=== PATIENT | female | born 1995 | race Caucasian/White ===

== ENCOUNTER 2016-11-11 12:44 | Outpatient (CLI) | payer OTHER | END 2016-11-11 12:45 | disposition EMS.NT | LOC: EMS 12:44 | PROVIDERS: ATTEND Surgery | DX: Z04.1 Encounter for examination and observation following transport accident (principal); V47.5XXA Car driver injured in collision with fixed or stationary object in traffic accident, initial encounter; Y92.413 State road as the place of occurrence of the external cause ==

== ENCOUNTER 2017-11-02 08:00 | Outpatient (CLI) | payer BC | END 2017-11-02 08:01 | disposition home or self-care (01) | LOC: LAB.R 08:00 | PROVIDERS: ATTEND Nurse Practitioner Obstetrics & Gynecology | DX: N89.8 Other specified noninflammatory disorders of vagina (principal); Z11.3 Encounter for screening for infections with a predominantly sexual mode of transmission | CPT/HCPCS: 87480; 87491; 87510; 87591; 87660 ==

== ENCOUNTER 2017-11-02 18:57 | Outpatient (CLI) | payer BC, OTHER ==
--- NOTE | 2017-11-02 20:09 | Ultrasound Report ---
Reason: [facility] FOR ROUTINE CHECKING OF IUD Procedure Date: 11/02/2017 Accession Number: [id number] / [id number] Procedure: US - Pelvic w/Transvaginal CPT Code: FULL RESULT: EXAM: PELVIC ULTRASOUND EXAM DATE: 11/02/2017 07:54 PM. CLINICAL HISTORY: Mirena IUD. Unable to find IUD string. . COMPARISON: None. TECHNIQUE: Realtime transabdominal pelvic scan performed to identify the uterus and adnexa and as an overview of other pelvic structures, followed by transvaginal scan to provide greater detail of the uterus and adnexa, with static image documentation. FINDINGS: Uterus: 8.5 x 3.5 x 2.9 cm, volume 44.9 cc. Anteverted position. Normal overall size and echotexture. Masses: None. Endometrium: 4 mm. IUD in good position. Cervix: Unremarkable. Right Ovary: 3.0 x 2.2 x 2.1 cm, volume 7.2 cc. Normal echotexture and blood flow. Left Ovary: 2.8 x 2.1 x 1.8 cm, volume 5.5 cc. Normal echotexture and blood flow. Free Fluid: None. Other: None. IMPRESSION: 1. IUD in good position. 2. Otherwise, unremarkable exam. RADIA The call report notification system was initiated by Dr. Nancy Holliday at 20:04 hrs on 11/02/17. The above findings were discussed with Demarcus Jimenez by Dr. Nancy Holliday at 20:08 hrs on 11/02/17.
== END 2017-11-02 18:58 | disposition home or self-care (01) ==
LOC: DI 18:57
PROVIDERS: ATTEND Nurse Practitioner Obstetrics & Gynecology
DX: Z30.431 Encounter for routine checking of intrauterine contraceptive device (principal); N89.8 Other specified noninflammatory disorders of vagina; Z11.3 Encounter for screening for infections with a predominantly sexual mode of transmission
CPT/HCPCS: 76830; 76856; 87480; 87491; 87510; 87591; 87660

== ENCOUNTER 2018-10-01 08:00 | Outpatient (CLI) | payer BC ==
[2018-10-01 22:05] LABS: TRICHOMONAS VAGINALIS DNA NEGATIVE (NEGATIVE)
== END 2018-10-01 23:59 | disposition home or self-care (01) ==
LOC: LAB.R 08:00
PROVIDERS: ATTEND Obstetrics & Gynecology
DX: R10.2 Pelvic and perineal pain (principal)
CPT/HCPCS: 87086; 87491; 87591; 87661

== ENCOUNTER 2018-10-01 19:27 | Outpatient (CLI) | payer BC ==
[2018-10-04 11:17] LABS: HEPATITIS B SURFACE ANTIGEN NON-REACTIVE (NON-REACTIVE); HEPATITIS C ANTIBODY NON-REACTIVE (NON-REACTIVE)
[2018-10-04 14:57] LABS: HIV AG/AB 4TH GEN NON-REACTIVE (NON-REACTIVE)
== END 2018-10-01 19:28 | disposition home or self-care (01) ==
LOC: LAB 19:27
PROVIDERS: ATTEND Obstetrics & Gynecology
DX: R10.2 Pelvic and perineal pain (principal)
CPT/HCPCS: 36415; 81599; 86592; 86803; 87086; 87340; 87389; 87491; 87591; 87661

== ENCOUNTER 2018-10-03 19:04 | Outpatient (CLI) | payer BC ==
--- NOTE | 2018-10-03 21:16 | Ultrasound Report ---
Reason: PELVIC PAIN Procedure Date: 10/03/2018 Accession Number: [id number] / [id number] Procedure: US - Pelvic w/Transvaginal CPT Code: FULL RESULT: EXAM: PELVIC ULTRASOUND EXAM DATE: 10/03/2018 08:15 PM. CLINICAL HISTORY: Pelvic pain. COMPARISON: PELVIC W/TRANSVAGINAL 11/02/2017 7:06 PM. TECHNIQUE: Realtime transabdominal pelvic scan performed to identify the uterus and adnexa and as an overview of other pelvic structures, followed by transvaginal scan to provide greater detail of the uterus and adnexa, with static image documentation. FINDINGS: Uterus: 7.8 x 3.2 x 3.4 cm, volume 44 cc. Anteverted position. Normal overall size and echotexture. Masses: None. Endometrium: 4 mm. Normal. Cervix: Unremarkable. Right Ovary: 2.6 x 2.1 x 1.6 cm, volume 4.5 cc. Normal echotexture and blood flow. Left Ovary: 2.1 x 1.6 x 2.6 cm, volume 4.4 cc. Normal echotexture and blood flow. Free Fluid: None. Other: None. IMPRESSION: Normal pelvic ultrasound. RADIA
== END 2018-10-03 19:05 | disposition home or self-care (01) ==
LOC: DI 19:04
PROVIDERS: ATTEND Obstetrics & Gynecology
DX: R10.2 Pelvic and perineal pain (principal)
CPT/HCPCS: 76830; 76856

== ENCOUNTER 2019-03-01 08:00 | Outpatient (CLI) | payer BC ==
[2019-03-01 19:19] LABS: HCG UR QUAL NEGATIVE
== END 2019-03-01 23:59 | disposition home or self-care (01) ==
LOC: LAB.R 08:00
PROVIDERS: ATTEND Registered Nurse
DX: F32.9 Major depressive disorder, single episode, unspecified (principal); F41.9 Anxiety disorder, unspecified
CPT/HCPCS: 81025

== ENCOUNTER 2019-03-05 19:14 | Outpatient (CLI) | payer BC ==
[2019-03-05 19:57] LABS: HCG,QUALITATIVE BLOOD NEGATIVE
== END 2019-03-05 19:15 | disposition home or self-care (01) ==
LOC: LAB 19:14
PROVIDERS: ATTEND Registered Nurse
DX: R11.0 Nausea (principal); R42 Dizziness and giddiness; R10.2 Pelvic and perineal pain
CPT/HCPCS: 36415; 84703; 87086

== ENCOUNTER 2019-10-31 08:14 | Emergency (ER) | payer BC ==
--- NOTE | 2019-10-31 08:41 | ED Physician Documentation ---
History of Present Illness - Stated complaint Stated Complaint: FEMALE - Chief complaint Chief Complaint: Abd Pain - History obtained from History obtained from: Patient, Family - History of Present Illness Timing: Today Pain level max: 3 Pain level now: 2 Quality: cramping - Additonal information Additional information: 24-year-old female presents to the emergency department stating that she believes she may be having a miscarriage. She had been on oral contraceptive pills regularly until approximately 4 weeks ago. She states her LMP was approximately 6 weeks ago. She states she started having vaginal bleeding today. She states that it is heavy with clots. Heavier than her normal menses. Nothing makes it better or worse. Has not taken a test. Has never been before. Review of Systems Ten Systems: 10 systems reviewed and negative Constitutional: denies: Fever, Chills Ears: denies: Ear pain Nose: denies: Rhinorrhea / runny nose, Congestion Throat: denies: Sore throat Cardiac: denies: Chest pain / pressure Respiratory: denies: Dyspnea, Cough GI: denies: Nausea, Vomiting, Diarrhea, Hematemesis, Bloody / black stool : denies: Dysuria, Frequency, Hesitancy Skin: denies: Rash Musculoskeletal: denies: Neck pain, Back pain Neurologic: denies: Headache Psychiatric: reports: Anxiety PD PAST MEDICAL HISTORY - Past Medical History Past Medical History: Yes Psych: Anxiety Other Past Medical History: tachycardia, occasionally takes propanolol - Past Surgical History Past Surgical History: Yes HEENT: Tonsil/Adenoidectomy - Allergies Allergies/Adverse Reactions: Allergies Allergy/AdvReac Type Severity Reaction Status Date / Time No Known Drug Allergies Allergy Verified 10/31/19 08:29 - Social History Does the pt smoke?: Yes Smoking Status: Current every day smoker Does the pt drink ETOH?: Yes Does the pt have substance abuse?: Yes - Family History Family history: reports: Non contributory - Immunizations Immunizations are current?: Yes PD ED PE NORMAL - Vitals Vital signs reviewed: Yes - General General: Alert and oriented X 3, No acute distress, Other (Tearful, anxious) - HEENT HEENT: Moist mucous membranes - Neck Neck: Supple, no meningeal sign - Cardiac Cardiac: Other (tachycardic) - Respiratory Respiratory: No respiratory distress, Clear bilaterally - Abdomen Abdomen: Soft, Non tender, Non distended - Back Back: No CVA TTP - Derm Derm: Warm and dry - Extremities Extremities: No edema, No calf tenderness / cord - Neuro Neuro: Alert and oriented X 3 - Psych Psych: Other (anxious) Results - Vitals Vitals: Vital Signs - 24 hr 10/31/19 10/31/19 08:16 09:02 Temperature 37 C Heart Rate 141 H 94 Respiratory 26 H 18 Rate Blood Pressure 177/102 H 142/97 H O2 Saturation 99 99 Oxygen O2 Source Room air - Labs Labs: Laboratory Tests 10/31/19 10/31/19 10/31/19 08:40 08:40 08:40 WBC 11.4 H RBC 4.46 Hgb 13.0 Hct 39.1 MCV 87.7 MCH 29.1 MCHC 33.2 RDW 12.7 Plt Count 411 MPV 9.6 Neut # (Auto) 6.4 Lymph # (Auto) 4.1 H [place] # (Auto) 0.7 Eos # (Auto) 0.2 Baso # (Auto) 0.1 Absolute Nucleated RBC 0.00 Nucleated RBC % 0.0 Sodium 137 Potassium 3.8 Chloride 101 Carbon Dioxide 21 Anion Gap 15.0 H BUN 15 Creatinine 0.8 Estimated GFR (MDRD) 87 L Glucose 186 H Calcium 9.5 Total Bilirubin 0.4 AST 17 ALT 22 Alkaline Phosphatase 70 Total Protein 7.6 Albumin 4.2 Globulin 3.4 Albumin/Globulin Ratio 1.2 Lipase 25 HCG, Quant < 0.60 Urine Color Urine Clarity Urine pH Ur Specific [place] Urine Protein Urine Glucose (UA) Urine Ketones Urine Occult Blood Urine Nitrite Urine Bilirubin Urine Urobilinogen Ur Leukocyte Esterase Urine RBC Urine WBC Ur Squamous Epith Cells Urine Bacteria Ur Microscopic Review Urine Culture Comments 10/31/19 08:50 WBC RBC Hgb Hct MCV MCH MCHC RDW Plt Count MPV Neut # (Auto) Lymph # (Auto) [place] # (Auto) Eos # (Auto) Baso # (Auto) Absolute Nucleated RBC Nucleated RBC % Sodium Potassium Chloride Carbon Dioxide Anion Gap BUN Creatinine Estimated GFR (MDRD) Glucose Calcium Total Bilirubin AST ALT Alkaline Phosphatase Total Protein Albumin Globulin Albumin/Globulin Ratio Lipase HCG, Quant Urine Color YELLOW Urine Clarity CLEAR Urine pH 5.5 Ur Specific [place] 1.025 Urine Protein NEGATIVE Urine Glucose (UA) NEGATIVE Urine Ketones NEGATIVE Urine Occult Blood MODERATE H Urine Nitrite NEGATIVE Urine Bilirubin NEGATIVE Urine Urobilinogen 0.2 (NORMAL) Ur Leukocyte Esterase NEGATIVE Urine RBC None Seen Urine WBC 0-3 Ur Squamous Epith Cells RARE Squamous Urine Bacteria Rare Ur Microscopic Review INDICATED Urine Culture Comments NOT INDICATED PD MEDICAL DECISION MAKING - ED course Complexity details: reviewed results, re-evaluated patient, considered differential, d/w patient ED course: No acute findings on laboratory testing. Patient states that her bleeding resolved in the emergency department. Likely dysfunctional uterine bleeding secondary to oral contraceptive withdrawal. Negative hCG. No evidence of ectopic. We will have her follow-up with her doctor as needed for further care. Patient counseled regarding signs and symptoms for which I believe and urgent re-evaluation would be necessary. Patient with good understanding of and agreement to plan and is comfortable going home at this time This document was made in part using voice recognition software. While efforts are made to proofread this document, sound alike and grammatical errors may occur. Departure - Departure Disposition: 01 Home, Self Care Clinical Impression: Abnormal menses Condition: Good Instructions: ED Bleeding Menstrual Heavy Follow-Up: Jessie Lund ARNP [Primary Care Provider] - As Needed Comments: Return if you worsen. This could be due to withdrawal from your oral contracep tive pills. Your menses may be irregular for the next several months. Follow- up with your doctor as needed for further care. Your test is negative today. Discharge Date/Time: 10/31/19 09:24
[2019-10-31 08:46] LABS: BASOPHILS # (AUTO) 0.1 10^3/uL (0.0-0.1); BASOPHILS % (AUTO) 0.4 %; EOSINOPHILS # (AUTO) 0.2 10^3/uL (0.0-0.7); EOSINOPHILS % (AUTO) 1.5 %; LYMPHOCYTES # (AUTO) 4.1 10^3/uL (1.5-3.5); LYMPHOCYTES % (AUTO) 35.6 %; MEAN CORPUSCULAR HEMOGLOBIN 29.1 pg (27.0-31.0); MEAN CORPUSCULAR HGB CONC 33.2 g/dL (32.0-36.0); MEAN CORPUSCULAR VOLUME 87.7 fL (81.0-99.0); MEAN PLATELET VOLUME 9.6 fL (7.9-10.8); MONOCYTES # (AUTO) 0.7 10^3/uL (0.0-1.0); NEUTROPHILS # (AUTO) 6.4 10^3/uL (1.5-6.6); NEUTROPHILS % (AUTO) 55.6 %; PLT - PLATELET COUNT 411 10^3/uL (130-450); RED BLOOD COUNT 4.46 10^6/uL (4.20-5.40); RED CELL DISTRIBUTION WIDTH 12.7 % (12.0-15.0); WHITE BLOOD COUNT 11.4 x10^3/uL (4.8-10.8)
[2019-10-31 08:59] LABS: ALBUMIN 4.2 g/dL (3.2-5.5); ALBUMIN/GLOBULIN RATIO 1.2 (1.0-2.2); BILIRUBIN,TOTAL 0.4 mg/dL (0.2-1.0); CALCIUM 9.5 mg/dL (8.5-10.3); CREATININE 0.8 mg/dL (0.4-1.0); TOTAL PROTEIN 7.6 g/dL (6.7-8.2)
[2019-10-31 09:02] VITALS: BP 142/97
[2019-10-31 09:06] LABS: BILIRUBIN,URINE NEGATIVE (NEGATIVE); GLUCOSE, URINE (UA) NEGATIVE (NEGATIVE); KETONES,URINE (UA) NEGATIVE (NEGATIVE); LEUKOCYTE ESTERASE, URINE NEGATIVE (NEGATIVE); NITRITE,URINE NEGATIVE (NEGATIVE); OCCULT BLOOD,URINE MODERATE (NEGATIVE); PH,URINE 5.5 PH (5.0-7.5); PROTEIN,URINE NEGATIVE (NEGATIVE); UROBILINOGEN,URINE 0.2 (NORMAL) E.U./dL (NORMAL)
[2019-10-31 09:08] LABS: CLARITY,URINE CLEAR (CLEAR)
[2019-10-31 09:11] LABS: BACTERIA,URINE Rare /HPF (None Seen); RBC,URINE None Seen /HPF (0-5); SQUAMOUS EPITHELIAL CELL,UR RARE Squamous (<= Few)
== END 2019-10-31 09:24 | disposition home or self-care (01) ==
LOC: ED 08:14
DX: N92.6 Irregular menstruation, unspecified (principal); Z32.02 Encounter for pregnancy test, result negative; F17.200 Nicotine dependence, unspecified, uncomplicated
CPT/HCPCS: 36415; 80053; 81001; 81003; 83690; 84702; 85025; 87086; 99283; 99284

== ENCOUNTER 2019-12-25 10:13 | Outpatient (CLI) | payer BC ==
--- NOTE | 2019-12-25 17:51 | XRAY Report ---
PROCEDURE: Knee 2 View RT INDICATIONS: R KNEE PAIN TECHNIQUE: 2 views of the right knee(s) were acquired. COMPARISON: None. FINDINGS: Bones: No fractures or dislocations. No suspicious bony lesions. No definite joint space narrowing Soft tissues: Small joint effusion. No suspicious soft tissue calcifications. IMPRESSION: Small joint effusion. If the patient's pain or other symptoms persist, consider further evaluation with MRI. Reviewed by: Meng Cowart MD on 12/25/2019 5:49 PM PST Approved by: Meng Cowart MD on 12/25/2019 5:49 PM PST Station ID: [id number]
== END 2019-12-25 23:59 | disposition home or self-care (01) ==
LOC: DI.N 10:13
PROVIDERS: ATTEND Family Medicine
DX: M25.461 Effusion, right knee (principal)

== ENCOUNTER 2020-02-24 13:50 | Outpatient (CLI) | payer BC ==
[2020-02-24 14:15] LABS: BASOPHILS # (AUTO) 0.1 10^3/uL (0.0-0.1); BASOPHILS % (AUTO) 0.5 %; EOSINOPHILS # (AUTO) 0.2 10^3/uL (0.0-0.7); EOSINOPHILS % (AUTO) 1.6 %; HGB - HEMOGLOBIN 13.4 g/dL (12.0-16.0); LYMPHOCYTES # (AUTO) 4.7 10^3/uL (1.5-3.5); LYMPHOCYTES % (AUTO) 36.6 %; MEAN CORPUSCULAR HEMOGLOBIN 27.7 pg (27.0-31.0); MEAN CORPUSCULAR HGB CONC 32.1 g/dL (32.0-36.0); MEAN CORPUSCULAR VOLUME 86.2 fL (81.0-99.0); MEAN PLATELET VOLUME 9.6 fL (7.9-10.8); MONOCYTES # (AUTO) 0.6 10^3/uL (0.0-1.0); NEUTROPHILS # (AUTO) 7.1 10^3/uL (1.5-6.6); NEUTROPHILS % (AUTO) 55.8 %; PLT - PLATELET COUNT 408 10^3/uL (130-450); RED BLOOD COUNT 4.84 10^6/uL (4.20-5.40); RED CELL DISTRIBUTION WIDTH 12.5 % (12.0-15.0); WHITE BLOOD COUNT 12.8 x10^3/uL (4.8-10.8)
[2020-02-24 21:31] LABS: HCG,QUALITATIVE BLOOD NEGATIVE
== END 2020-02-24 13:51 | disposition home or self-care (01) ==
LOC: LAB 13:50
PROVIDERS: ATTEND Obstetrics & Gynecology
DX: N93.9 Abnormal uterine and vaginal bleeding, unspecified (principal)
CPT/HCPCS: 36415; 84702; 84703; 85025; 86850; 86900; 86901

== ENCOUNTER 2020-04-21 21:26 | Outpatient (CLI) | payer BC ==
--- NOTE | 2020-04-22 09:19 | Ultrasound Report ---
PROCEDURE: Pelvic w/Transvaginal INDICATIONS: PELVIC PAIN TECHNIQUE: Real-time scanning was performed of the pelvic organs, with image documentation. Additional endovagi nal scanning was necessary due to incomplete visualization of the adnexal and endometrial structures by transabdominal scanning. COMPARISON: Pelvic ultrasound 10/03/2018 FINDINGS: No pathologic free abdominal or pelvic fluid. Uterus: Uterus is normal in size at 8.2 x 3.1 x 4.1 cm. Volume of the uterus 55.8 cc. The endometri um measures 3 mm in combined thickness. Ovaries: Right ovary measures 3.4 x 2.0 x 2.1 cm, volume 7.5 cc. Left ovary measures 3.5 x 1.9 x 2.4 cm, volume 8.1 cc. There are unremarkable. Vascular flow is identified. IMPRESSION: Unremarkable exam. Reviewed by: Keri Van MD on 04/22/2020 9:18 AM PST Approved by: Keri Van MD on 04/22/2020 9:18 AM PST Station ID: [id number]
== END 2020-04-21 21:27 | disposition home or self-care (01) ==
LOC: DI 21:26
PROVIDERS: ATTEND Obstetrics & Gynecology
DX: R10.2 Pelvic and perineal pain (principal)

== ENCOUNTER 2020-05-21 17:41 | Emergency (ER) | payer BC ==
[2020-05-21 18:22] LABS: BASOPHILS # (AUTO) 0.1 10^3/uL (0.0-0.1); BASOPHILS % (AUTO) 0.4 %; EOSINOPHILS # (AUTO) 0.2 10^3/uL (0.0-0.7); EOSINOPHILS % (AUTO) 1.9 %; HCT - HEMATOCRIT 39.6 % (37.0-47.0); HGB - HEMOGLOBIN 12.9 g/dL (12.0-16.0); LYMPHOCYTES # (AUTO) 4.3 10^3/uL (1.5-3.5); LYMPHOCYTES % (AUTO) 37.5 %; MEAN CORPUSCULAR HEMOGLOBIN 27.5 pg (27.0-31.0); MEAN CORPUSCULAR HGB CONC 32.6 g/dL (32.0-36.0); MEAN CORPUSCULAR VOLUME 84.4 fL (81.0-99.0); MEAN PLATELET VOLUME 9.5 fL (7.9-10.8); MONOCYTES # (AUTO) 0.4 10^3/uL (0.0-1.0); MONOCYTES % (AUTO) 3.5 %; NEUTROPHILS # (AUTO) 6.5 10^3/uL (1.5-6.6); NEUTROPHILS % (AUTO) 56.1 %; PLT - PLATELET COUNT 391 10^3/uL (130-450); RED BLOOD COUNT 4.69 10^6/uL (4.20-5.40); RED CELL DISTRIBUTION WIDTH 13.6 % (12.0-15.0); WHITE BLOOD COUNT 11.6 x10^3/uL (4.8-10.8)
[2020-05-21 18:33] LABS: ALBUMIN 4.2 g/dL (3.2-5.5); ALBUMIN/GLOBULIN RATIO 1.1 (1.0-2.2); BILIRUBIN,TOTAL 0.3 mg/dL (0.2-1.0); CALCIUM 9.4 mg/dL (8.5-10.3); CREATININE 0.8 mg/dL (0.4-1.0); POTASSIUM 3.6 mmol/L (3.5-5.0); TOTAL PROTEIN 7.9 g/dL (6.7-8.2)
[2020-05-21 18:40] LABS: BILIRUBIN,URINE NEGATIVE (NEGATIVE); GLUCOSE, URINE (UA) 100 mg/dL (NEGATIVE); KETONES,URINE (UA) NEGATIVE (NEGATIVE); LEUKOCYTE ESTERASE, URINE NEGATIVE (NEGATIVE); NITRITE,URINE NEGATIVE (NEGATIVE); OCCULT BLOOD,URINE SMALL (NEGATIVE); PROTEIN,URINE NEGATIVE (NEGATIVE); UROBILINOGEN,URINE 0.2 (NORMAL) E.U./dL (NORMAL)
[2020-05-21 18:43] LABS: CLARITY,URINE CLEAR (CLEAR); HCG UR QUAL NEGATIVE
[2020-05-21] MEDS ORDERED: SODIUM CHLORIDE 0.9% 1,000 ML IV STA (18:50)
[2020-05-21] MEDS ORDERED: ONDANSETRON 4 MG/2 ML VIAL IVP STA (18:50)
--- NOTE | 2020-05-21 18:52 | ED Physician Documentation ---
PD HPI ABD PAIN - Stated complaint Stated Complaint: ABD PX,NUMBNESS RT ARM/HAND - Chief complaint Chief Complaint: Abd Pain - History obtained from History obtained from: Patient - Additional information Additional information: Patient comes emergency department chief complaint of right lower quadrant abdominal pain, nausea, and intermittent dizziness for the last few days. Patient states the pain has steadily been getting worse little by little, and that she has not felt like eating much for the last couple of days. She states she has been trying to drink a little water, though it has been somewhat difficult because of her nausea. The patient denies any measured fevers, though she does states she feels as though her temperature has been fluctuating between feeling hot and cold. She denies any shaking chills. No dysuria. No hematuria. No bowel changes. She has not vomited, but has had a persistent sense of nausea. No respiratory symptoms. No sore throat. She does note that yesterday, while she was cutting vegetables, she suddenly felt dizzy and had a numbness sensation that went down her entire right arm from the shoulder. She states she can feel the knife she was holding for a few minutes. The patient went to lay down and states that after about 10 minutes she felt better. No other complaints at this time. Patient is otherwise healthy as far she knows. She has the Nexplanon implant and is not known to be , though she has had a little spotting lately. Review of Systems Ten Systems: 10 systems reviewed and negative Constitutional: reports: Reviewed and negative Eyes: reports: Reviewed and negative Ears: reports: Reviewed and negative Nose: reports: Reviewed and negative Throat: reports: Reviewed and negative Cardiac: reports: Reviewed and negative Respiratory: reports: Reviewed and negative GI: reports: Abdominal Pain, Nausea. denies: Vomiting : reports: Reviewed and negative. denies: Dysuria Skin: reports: Reviewed and negative Musculoskeletal: reports: Reviewed and negative Neurologic: reports: Reviewed and negative Psychiatric: reports: Reviewed and negative Endocrine: reports: Reviewed and negative Immunocompromised: reports: Reviewed and negative PD PAST MEDICAL HISTORY - Past Medical History Past Medical History: Yes [employer]ER: Other Psych: Anxiety - Past Surgical History Past Surgical History: Yes HEENT: Tonsil/Adenoidectomy - Present Medications Home Medications: Ambulatory Orders Medication Instructions Recorded Confirmed Ondansetron Odt [Zofran] 4 mg TL Q6H PRN #10 tablet 05/21/20 metFORMIN [Glucophage] 500 mg PO DAILY #30 tablet 05/21/20 - Allergies Allergies/Adverse Reactions: Allergies Allergy/AdvReac Type Severity Reaction Status Date / Time No Known Drug Allergies Allergy Verified 05/21/20 17:58 - Social History Does the pt smoke?: Yes Smoking Status: Current every day smoker Does the pt drink ETOH?: Yes Does the pt have substance abuse?: Yes - Immunizations Immunizations are current?: Yes - POLST Patient has POLST: No PD ED PE NORMAL - Vitals Vital signs reviewed: Yes - General General: Alert and oriented X 3, No acute distress, Well developed/nourished - HEENT HEENT: Atraumatic, PERRL, EOMI, Moist mucous membranes - Neck Neck: Supple, no meningeal sign - Cardiac Cardiac: RRR, No murmur - Respiratory Respiratory: No respiratory distress, Clear bilaterally - Abdomen Abdomen: Soft, Non distended, Other (Moderate tenderness right lower quadrant, no rebound or guarding.) - Back Back: Other (Mild left CVA tenderness, no right CVA tenderness.) - Derm Derm: Normal color, Warm and dry, No rash - Extremities Extremities: No deformity, No edema, No calf tenderness / cord - Neuro Neuro: Alert and oriented X 3, didactic program in dietetics director 2-12 intact, Normal speech - Psych Psych: Normal mood, Normal affect Results - Vitals Vitals: Oxygen O2 Source Room air - Labs Labs: Laboratory Tests 05/21/20 05/21/20 05/21/20 18:15 18:15 18:15 WBC 11.6 H RBC 4.69 Hgb 12.9 Hct 39.6 MCV 84.4 MCH 27.5 MCHC 32.6 RDW 13.6 Plt Count 391 MPV 9.5 Neut # (Auto) 6.5 Lymph # (Auto) 4.3 H [place] # (Auto) 0.4 Eos # (Auto) 0.2 Baso # (Auto) 0.1 Absolute Nucleated RBC 0.00 Nucleated RBC % 0.0 Sodium 137 Potassium 3.6 Chloride 106 Carbon Dioxide 20 L Anion Gap 11.0 BUN 12 Creatinine 0.8 Estimated GFR (MDRD) 87 L Glucose 258 H Estimat Average Glucose Hemoglobin A1c % Calcium 9.4 Total Bilirubin 0.3 AST 15 ALT 17 Alkaline Phosphatase 86 Total Protein 7.9 Albumin 4.2 Globulin 3.7 Albumin/Globulin Ratio 1.1 Lipase 29 Urine Color YELLOW Urine Clarity CLEAR Urine pH 7.0 Ur Specific [place] 1.020 Urine Protein NEGATIVE Urine Glucose (UA) 100 H Urine Ketones NEGATIVE Urine Occult Blood SMALL H Urine Nitrite NEGATIVE Urine Bilirubin NEGATIVE Urine Urobilinogen 0.2 (NORMAL) Ur Leukocyte Esterase NEGATIVE Urine RBC 0-5 Urine WBC 0-3 Ur Squamous Epith Cells RARE Squamous Urine Bacteria None Seen Ur Microscopic Review INDICATED Urine Culture Comments NOT INDICATED Urine HCG, Qual NEGATIVE 05/21/20 18:15 WBC RBC Hgb Hct MCV MCH MCHC RDW Plt Count MPV Neut # (Auto) Lymph # (Auto) [place] # (Auto) Eos # (Auto) Baso # (Auto) Absolute Nucleated RBC Nucleated RBC % Sodium Potassium Chloride Carbon Dioxide Anion Gap BUN Creatinine Estimated GFR (MDRD) Glucose Estimat Average Glucose 146 H Hemoglobin A1c % 6.7 H Calcium Total Bilirubin AST ALT Alkaline Phosphatase Total Protein Albumin Globulin Albumin/Globulin Ratio Lipase Urine Color Urine Clarity Urine pH Ur Specific [place] Urine Protein Urine Glucose (UA) Urine Ketones Urine Occult Blood Urine Nitrite Urine Bilirubin Urine Urobilinogen Ur Leukocyte Esterase Urine RBC Urine WBC Ur Squamous Epith Cells Urine Bacteria Ur Microscopic Review Urine Culture Comments Urine HCG, Qual - Rads (name of study) CT abd/pelvis Radiology: Discussed with rads, EMP read indepedently, See rad report (neg) PD MEDICAL DECISION MAKING - ED course Complexity details: reviewed results, re-evaluated patient, considered differential, d/w patient ED course: Patient was worked up with labs, urinalysis, and urine test. She was found to have a slight leukocytosis and a negative test. Given her right lower quadrant tenderness and the nausea she been having, I feel she should be evaluated with CT scan of the abdomen and pelvis. While awaiting this, patient was given a liter of 0.9 normal saline as well as a dose of Zofran. The CT scan was unremarkable. I discussed with the patient that I am not entirely sure what is causing her symptoms. She was found to have a significantly elevated blood glucose at 258, and I am concerned that she has undiagnosed diabetes. This could potentially be the source of some of her symptoms. I have added hemoglobin A1c onto her labs, and I feel the best plan at this point is to start her on a low-dose of Metformin. Unfortunately, due to it being nighttime, I am not able to call any of the local clinics to directly get follow-up set up for this patient, but I have advised her to call primary care office first thing in the morning to set up follow-up. I have prescribed her a glucometer, lancets, and glucose test strips, as well as Metformin. We have discussed home management of the symptoms, as well as usual indications for return. Because she has received IV contrast today, we will have her start the Metformin tomorrow, instead. Departure - Departure Disposition: Home, Self Care Clinical Impression: Diabetes mellitus, new onset Abdominal pain Qualifiers: Abdominal location: right lower quadrant Qualified Code(s): R10.31 - Right lower quadrant pain Condition: Stable Instructions: ED Abdominal Pain Unkn Cause, ED Diabetes General Info, ED Hyperglycemia Diabetic Prescriptions: metFORMIN [Glucophage] 500 mg PO DAILY #30 tablet Ondansetron Odt [Zofran] 4 mg TL Q6H PRN #10 tablet PRN Reason: Nausea / Vomiting Comments: Your CT scan looks good, as to most of your labs, but your blood sugar was significantly elevated to 58. Given that the normal range is up to about 110, this finding is concerning for diabetes. As such, it is very important that you follow-up in primary care for further evaluation of this. Tonight, you have been started on an oral medication for this called Metformin. This is a common oral agent used to treat diabetes. We have started you on the lowest dose and it would be best if you are able to check your blood sugars in the morning and evening. A prescription has been given for the necessary equipment. Please call first thing tomorrow morning to set up an appointment with [facility] for follow-up, preferably within the next week. Discharge Date/Time: 05/21/20 21:00
[2020-05-21 18:55] LABS: BACTERIA,URINE None Seen /HPF (None Seen); RBC,URINE 0-5 /HPF (0-5); SQUAMOUS EPITHELIAL CELL,UR RARE Squamous (<= Few); WBC,URINE 0-3 /HPF (0-5)
[2020-05-21] MEDS ORDERED: IOPAMIDOL-300 100 ML VIAL ONE (19:21)
[2020-05-21] MEDS ORDERED: KETOROLAC 30 MG/ML VIAL IVP STA (19:38)
[2020-05-21] MEDS ORDERED: HYDROmorphone 1 MG/ML CARPUJECT IVP STA (19:38)
[2020-05-21] MEDS ORDERED: IOPAMIDOL-300 100 ML VIAL IVP ONE (19:47)
--- NOTE | 2020-05-21 20:14 | CT Report ---
PROCEDURE: Abdomen/Pelvis W INDICATIONS: RLQ pain, nausea CONTRAST: IV CONTRAST: Isovue 300 ml: 100 PO CONTRAST: *NO PO CONTRAST TECHNIQUE: After the administration of intravenous contrast, 5 mm thick sections acquired from the diaphragms to the symphysis. 5 mm thick coronal and sagittal reformats were acquired. For radiation dose reducti on, the following was used: automated exposure control, adjustment of mA and/or kV according to daisy ent size. COMPARISON: None. FINDINGS: Image quality: Excellent. ABDOMEN: Lung bases: Lung bases are clear. Heart size is normal. Solid organs: Evaluation of the liver demonstrates no focal hepatic lesions. Gallbladder appears wit hin normal limits without calcified gallstones. Biliary system is non dilated. The spleen is normal in size. Pancreas enhances normally without peripancreatic fat stranding or fluid collections. No ad renal nodules. Kidneys demonstrate no hydronephrosis. Peritoneum and bowel: Bowel loops demonstrate normal wall thickness and caliber. The appendix is nor mal in appearance. There is colonic diverticulosis without acute diverticulitis. No free fluid or air . Nodes and vessels: No retroperitoneal or mesenteric adenopathy by size criteria. Aorta and inferior vena cava are normal in size. Miscellaneous: No ventral hernias. PELVIS: Genitourinary: Bladder wall thickness is normal. The ovaries and uterus appear within normal size li mits for age. Miscellaneous: No inguinal hernias or adenopathy. Bones: No suspicious bony lesions. No vertebral body compression fractures. IMPRESSION: 1. No acute intra-abdominal abnormality. Specifically, no evidence of appendicitis. Reviewed by: Mahendra Childress MD on 05/21/2020 8:12 PM PDT Approved by: Mahendra Childress MD on 05/21/2020 8:12 PM PDT Station ID: [id number]
[2020-05-21] MEDS ORDERED: metFORMIN 500 MG TABLET PO STA (20:44)
[2020-05-21 20:52] LABS: ESTIMATED AVERAGE GLUCOSE 146 mg/dL (70-100); HEMOGLOBIN A1c% 6.7 % (4.27-6.07)
[2020-05-21 21:00] VITALS: BP 128/78
== END 2020-05-21 21:00 | disposition home or self-care (01) ==
LOC: ED 17:41
DX: E11.9 Type 2 diabetes mellitus without complications (principal); R10.31 Right lower quadrant pain; F17.200 Nicotine dependence, unspecified, uncomplicated
CPT/HCPCS: 36415; 74177; 80053; 81001; 81025; 83036; 83690; 85025; 96361; 96374; 96375; 99284; A9270; J1170; Q9967; 81003; 87086

== ENCOUNTER 2020-09-17 09:46 | Emergency (ER) | payer BC ==
[2020-09-17] MEDS ORDERED: ONDANSETRON 4 MG/2 ML VIAL IVP STA (09:49)
[2020-09-17] MEDS ORDERED: SODIUM CHLORIDE 0.9% 1,000 ML IV STA (09:49)
[2020-09-17 10:26] LABS: BASOPHILS # (AUTO) 0.1 10^3/uL (0.0-0.1); BASOPHILS % (AUTO) 0.4 %; EOSINOPHILS # (AUTO) 0.1 10^3/uL (0.0-0.7); EOSINOPHILS % (AUTO) 0.9 %; HCT - HEMATOCRIT 41.4 % (37.0-47.0); HGB - HEMOGLOBIN 13.1 g/dL (12.0-16.0); LYMPHOCYTES # (AUTO) 3.8 10^3/uL (1.5-3.5); MEAN CORPUSCULAR HEMOGLOBIN 27.1 pg (27.0-31.0); MEAN CORPUSCULAR HGB CONC 31.6 g/dL (32.0-36.0); MEAN CORPUSCULAR VOLUME 85.7 fL (81.0-99.0); MEAN PLATELET VOLUME 9.8 fL (7.9-10.8); MONOCYTES # (AUTO) 0.4 10^3/uL (0.0-1.0); MONOCYTES % (AUTO) 3.5 %; NEUTROPHILS % (AUTO) 61.8 %; PLT - PLATELET COUNT 380 10^3/uL (130-450); RED BLOOD COUNT 4.83 10^6/uL (4.20-5.40); RED CELL DISTRIBUTION WIDTH 14.2 % (12.0-15.0); WHITE BLOOD COUNT 11.4 x10^3/uL (4.8-10.8)
[2020-09-17 10:30] LABS: BILIRUBIN,URINE NEGATIVE (NEGATIVE); GLUCOSE, URINE (UA) NEGATIVE (NEGATIVE); KETONES,URINE (UA) NEGATIVE (NEGATIVE); LEUKOCYTE ESTERASE, URINE NEGATIVE (NEGATIVE); NITRITE,URINE NEGATIVE (NEGATIVE); OCCULT BLOOD,URINE SMALL (NEGATIVE); PROTEIN,URINE NEGATIVE (NEGATIVE); UROBILINOGEN,URINE 0.2 (NORMAL) E.U./dL (NORMAL)
[2020-09-17 10:34] LABS: CLARITY,URINE CLEAR (CLEAR); HCG UR QUAL NEGATIVE
[2020-09-17 10:40] LABS: ALBUMIN 4.9 g/dL (3.2-5.5); ALBUMIN/GLOBULIN RATIO 1.4 (1.0-2.2); BILIRUBIN,TOTAL 0.6 mg/dL (0.2-1.0); CALCIUM 9.8 mg/dL (8.5-10.3); CREATININE 0.8 mg/dL (0.4-1.0); POTASSIUM 3.9 mmol/L (3.5-5.0); TOTAL PROTEIN 8.4 g/dL (6.7-8.2)
[2020-09-17 10:43] LABS: BACTERIA,URINE Rare /HPF (None Seen); RBC,URINE 0-5 /HPF (0-5); SQUAMOUS EPITHELIAL CELL,UR RARE Squamous (<= Few); WBC,URINE 0-3 /HPF (0-5)
--- NOTE | 2020-09-17 10:58 | ED Physician Documentation ---
PD HPI ABD PAIN - Stated complaint Stated Complaint: ABD PX - Chief complaint Chief Complaint: Abd Pain - History obtained from History obtained from: Patient - Additional information Additional information: Comes emergency department with chief complaint of abdominal pain and intermittent nausea ongoing for the last 4 to 5 weeks. Patient states that she first noticed the problems when she had hamburger after having been on a primarily vegetable-based diet for quite some time. She states that since then, she has had ongoing upper abdominal pain and cramping and that about once a week she will also have vomiting. She states that often this is in conjunction with having eaten something that is not within her usual dietary constraints. Patient has a fairly recent diagnosis of diabetes mellitus and states that her sugars actually have been doing well, mostly staying in the lower 100s. Patient denies fevers or chills. No dysuria or vaginal symptoms. The patient has a Nexplanon and does not really get periods. She denies any prior history of abdominal issues. She does not know of anybody in her family who has had gallbladder disease. No other complaints at this time. She states that her abdominal discomfort comes and goes, and that today, it is across her upper abdomen, plus down her left side. Review of Systems Ten Systems: 10 systems reviewed and negative Constitutional: reports: Reviewed and negative Eyes: reports: Reviewed and negative Ears: reports: Reviewed and negative Nose: reports: Reviewed and negative Throat: reports: Reviewed and negative Cardiac: reports: Reviewed and negative Respiratory: reports: Reviewed and negative GI: reports: Abdominal Pain, Nausea, Vomiting : reports: Reviewed and negative Skin: reports: Reviewed and negative Musculoskeletal: reports: Reviewed and negative Neurologic: reports: Reviewed and negative Psychiatric: reports: Reviewed and negative Endocrine: reports: Reviewed and negative Immunocompromised: reports: Reviewed and negative PD PAST MEDICAL HISTORY - Past Medical History 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 Psych: 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 - Past Surgical History Past Surgical History: Yes HEENT: Tonsil/Adenoidectomy - Present Medications Home Medications: Ambulatory Orders Medication Instructions Recorded Confirmed Ondansetron Odt [Zofran] 4 mg TL Q6H PRN #10 tablet 05/21/20 metFORMIN [Glucophage] 500 mg PO DAILY #30 tablet 05/21/20 Omeprazole [PriLOSEC] 20 mg PO DAILY #30 cap 09/17/20 Ondansetron Odt [Zofran] 4 mg TL Q6H PRN #10 tablet 09/17/20 - Allergies Allergies/Adverse Reactions: Allergies Allergy/AdvReac Type Severity Reaction Status Date / Time No Known Drug Allergies Allergy Verified 09/17/20 10:08 - Social History Does the pt smoke?: Yes Smoking Status: Current every day smoker Does the pt drink ETOH?: Yes Does the pt have substance abuse?: Yes - Immunizations Immunizations are current?: Yes - POLST Patient has POLST: No PD ED PE NORMAL - Vitals Vital signs reviewed: Yes - General General: Alert and oriented X 3, No acute distress - HEENT HEENT: PERRL - Neck Neck: Supple, no meningeal sign - Cardiac Cardiac: RRR, No murmur, Strong equal pulses - Respiratory Respiratory: No respiratory distress, Clear bilaterally - Abdomen Abdomen: Soft, Non distended, Other (Over the suprapubic area andModerate tenderness without rebound or guarding tire left abdomen. Moderate tenderness over right upper quadrant, as well.) - Back Back: Other (Left CVA tenderness) - Derm Derm: Normal color, Warm and dry, No rash - Extremities Extremities: No deformity, No edema, No calf tenderness / cord - Neuro Neuro: Alert and oriented X 3, rollway man 2-12 intact, Normal speech - Psych Psych: Normal mood, Normal affect Results - Vitals Vitals: Vital Signs - 24 hr 09/17/20 09/17/20 09/17/20 10:05 11:59 13:30 Temperature 36.7 C 36.1 C L Heart Rate 95 83 67 Respiratory 16 16 20 Rate Blood Pressure 142/111 H 141/85 H 108/82 H O2 Saturation 99 96 100 Oxygen O2 Source Room air - Labs Labs: Laboratory Tests 09/17/20 09/17/20 09/17/20 10:15 10:15 10:15 WBC 11.4 H RBC 4.83 Hgb 13.1 Hct 41.4 MCV 85.7 MCH 27.1 MCHC 31.6 L RDW 14.2 Plt Count 380 MPV 9.8 Neut # (Auto) 7.0 H Lymph # (Auto) 3.8 H [place] # (Auto) 0.4 Eos # (Auto) 0.1 Baso # (Auto) 0.1 Absolute Nucleated RBC 0.00 Nucleated RBC % 0.0 Sodium 138 Potassium 3.9 Chloride 105 Carbon Dioxide 22 Anion Gap 11.0 BUN 9 Creatinine 0.8 Estimated GFR (MDRD) 87 L Glucose 102 H Calcium 9.8 Total Bilirubin 0.6 AST 15 ALT 17 Alkaline Phosphatase 73 Total Protein 8.4 H Albumin 4.9 Globulin 3.6 Albumin/Globulin Ratio 1.4 Lipase 27 Urine Color YELLOW Urine Clarity CLEAR Urine pH 7.0 Ur Specific Wallace 1.020 Urine Protein NEGATIVE Urine Glucose (UA) NEGATIVE Urine Ketones NEGATIVE Urine Occult Blood SMALL H Urine Nitrite NEGATIVE Urine Bilirubin NEGATIVE Urine Urobilinogen 0.2 (NORMAL) Ur Leukocyte Esterase NEGATIVE Urine RBC 0-5 Urine WBC 0-3 Ur Squamous Epith Cells RARE Squamous Urine Bacteria Rare Ur Microscopic Review INDICATED Urine Culture Comments NOT INDICATED Urine HCG, Qual NEGATIVE - Rads (name of study) CT abd/pelvis Radiology: Final report received, EMP read indepedently, See rad report (neg) PD MEDICAL DECISION MAKING - ED course Complexity details: reviewed results, re-evaluated patient, considered differential, d/w patient, d/w family ED course: The patient was worked up with labs, urinalysis, and CT of the abdomen pelvis. She was treated with IV fluids, dilaudid and Zofran, with some improvement in sx. Work-up was negative, except for slight leukocytosis. I d/w pt and that she would likely benefit from GI consultation at this point, and probably endoscopy. We have discussed symptomatic management at home with a PPI and Zofran. I have prescribed these, as well. We have discussed the usual indications for return. Departure - Departure Disposition: 01 Home, Self Care Clinical Impression: Vomiting Qualifiers: Vomiting type: bilious vomiting Nausea presence: with nausea Qualified Code(s): R11.14 - Bilious vomiting Abdominal pain Qualifiers: Abdominal location: generalized Qualified Code(s): R10.84 - Generalized abdomin al pain Condition: Stable Instructions: ED Abdominal Pain Unkn Cause, ED Nausea Vomiting Follow-Up: ABRAM PENA MD [Physician No Access] - Chase Lyn MD [Physician No Access] - SETH REZA MD [Physician No Access] - Prescriptions: Omeprazole [PriLOSEC] 20 mg PO DAILY #30 cap Ondansetron Odt [Zofran] 4 mg TL Q6H PRN #10 tablet PRN Reason: Nausea / Vomiting Comments: Your labs and CT scan do not show any concerning abnormalities. It is not clear exactly what is causing your symptoms, but probably the next best test to do to try and figure out what is causing your ongoing abdominal pain and vomiting is an endoscopy. We have given you the contact information for gastroenterology at [facility] and [facility], but often, and these clinics want a referral from your primary provider. Please follow-up with your primary, as well to help get the r eferral process going. You may take the nausea medication as needed. Please speak with your primary doctor about the best course of action regarding your abdominal pain, as many pain medications are constipating and may make the situation worse. Discharge Date/Time: 09/17/20 13:32
[2020-09-17] MEDS ORDERED: HYDROmorphone 1 MG/ML CARPUJECT IM STA (11:27)
[2020-09-17] MEDS ORDERED: IOPAMIDOL-300 100 ML VIAL ONE (11:30)
[2020-09-17] MEDS ORDERED: IOPAMIDOL-300 100 ML VIAL IVP ONE (11:59)
--- NOTE | 2020-09-17 12:06 | CT Report ---
PROCEDURE: Abdomen/Pelvis W INDICATIONS: LLQ and RUQ abd pain, nausea CONTRAST: IV CONTRAST: Isovue 300 ml: 100 PO CONTRAST: *NO PO CONTRAST TECHNIQUE: After the administration of intravenous contrast, 5 mm thick sections acquired from the diaphragms to the symphysis. 5 mm thick coronal and sagittal reformats were acquired. For radiation dose reducti on, the following was used: automated exposure control, adjustment of mA and/or kV according to daisy ent size. COMPARISON: 05/21/2020 CT abdomen and pelvis FINDINGS: Image quality: Excellent. ABDOMEN: Lung bases: Lung bases are clear. Heart size is normal. Solid organs: Normal CT appearance of the liver, spleen, pancreas, gallbladder, adrenal glands, and k idneys. Peritoneum and bowel: The appendix is normal in caliber and contains air with no wall thickening or adjacent inflammatory change. Bowel loops demonstrate normal wall thickness and caliber. No free flu id or air. Nodes and vessels: No retroperitoneal or mesenteric adenopathy by size criteria. Aorta and inferior vena cava are normal in size. Miscellaneous: No ventral hernias. PELVIS: Genitourinary: Bladder wall thickness is normal. Miscellaneous: No inguinal hernias or adenopathy. Bones: No suspicious bony lesions. No vertebral body compression fractures. IMPRESSION: No finding to explain symptoms. No acute abnormality. Reviewed by: Roscoe Lima MD on 09/17/2020 12:04 PM PDT Approved by: Roscoe Lima MD on 09/17/2020 12:04 PM PDT Station ID: [id number]
[2020-09-17] MEDS ORDERED: PROMETHAZINE INJ 25 MG in SODIUM CHLORIDE 0.9% 50 ML IV STA (12:22)
[2020-09-17] MEDS ORDERED: HYDROmorphone 1 MG/ML CARPUJECT IVP STA (12:22)
[2020-09-17 13:32] VITALS: BP 108/82
== END 2020-09-17 13:32 | disposition home or self-care (01) ==
LOC: ED 09:46
DX: R10.84 Generalized abdominal pain (principal); R11.14 Bilious vomiting; E11.9 Type 2 diabetes mellitus without complications; Z79.84 Long term (current) use of oral hypoglycemic drugs; F17.200 Nicotine dependence, unspecified, uncomplicated
CPT/HCPCS: 36415; 74177; 80053; 81001; 81025; 83690; 85025; 96365; 96372; 96375; 99284; 99285; J1170; J7040; Q9967; 81003; 87086

== ENCOUNTER 2020-11-24 20:29 | Emergency (ER) | payer BC ==
[2020-11-24 21:07] LABS: BASOPHILS % (AUTO) 0.4 %; EOSINOPHILS % (AUTO) 0.7 %; HCT - HEMATOCRIT 40.1 % (37.0-47.0); HGB - HEMOGLOBIN 12.8 g/dL (12.0-16.0); LYMPHOCYTES % (AUTO) 33.7 %; MEAN CORPUSCULAR HEMOGLOBIN 27.4 pg (27.0-31.0); MEAN CORPUSCULAR HGB CONC 31.9 g/dL (32.0-36.0); MEAN CORPUSCULAR VOLUME 85.7 fL (81.0-99.0); MEAN PLATELET VOLUME 9.7 fL (7.9-10.8); MONOCYTES % (AUTO) 3.6 %; NEUTROPHILS % (AUTO) 61.2 %; PLT - PLATELET COUNT 422 10^3/uL (130-450); RED BLOOD COUNT 4.68 10^6/uL (4.20-5.40); RED CELL DISTRIBUTION WIDTH 13.5 % (12.0-15.0); WHITE BLOOD COUNT 16.8 x10^3/uL (4.8-10.8)
[2020-11-24 21:12] LABS: ABNORMAL LYMPHS % (MANUAL) 0 %
[2020-11-24] MEDS ORDERED: ONDANSETRON 4 MG/2 ML VIAL IVP STA (21:17)
[2020-11-24] MEDS ORDERED: FAMOTIDINE 20 MG/2 ML VIAL IVP STA (21:17)
[2020-11-24] MEDS ORDERED: MORPHINE 2 MG/ML CARPUJECT IVP STA (21:18)
[2020-11-24] MEDS ORDERED: SODIUM CHLORIDE 0.9% 1,000 ML IV STA (21:18)
[2020-11-24 21:20] LABS: ALBUMIN 4.7 g/dL (3.2-5.5); ALBUMIN/GLOBULIN RATIO 1.4 (1.0-2.2); BILIRUBIN,TOTAL 0.6 mg/dL (0.2-1.0); CALCIUM 10.1 mg/dL (8.5-10.3); CREATININE 0.8 mg/dL (0.4-1.0); POTASSIUM 3.4 mmol/L (3.5-5.0)
[2020-11-24 21:23] LABS: INR 1.2 (0.8-1.2)
[2020-11-24 21:29] LABS: BAND NEUTROPHILS % (MANUAL) 1 %; DIFFERENTIAL COMMENT MANUAL DIFFERENTIAL; LYMPHOCYTES # (MANUAL) 6.4 10^3/uL (1.5-3.5); LYMPHOCYTES % (MANUAL) 29 %; MONOCYTES # (MANUAL) 0.2 10^3/uL (0.0-1.0); NEUTROPHILS # (MANUAL) 10.2 10^3/uL (1.5-6.6); PLATELET ESTIMATE, MANUAL NORMAL (130-450,000) (NORMAL); RBC MORPHOLOGY (MULTIPLE) NORMAL APPEARANCE (NORMAL); REACTIVE LYMPHS % (MANUAL) 9 %
--- NOTE | 2020-11-24 21:44 | ED Physician Documentation ---
History of Present Illness - Stated complaint Stated Complaint: ABD PX/VOMIT - Chief complaint Chief Complaint: Abd Pain - History obtained from History obtained from: Patient - Additonal information Additional information: 25yF with PMH prediabetes on metformin, anxiety on SSRI, presents with 6-8 months of intermittent abdominal pain for which she has seen doctors multiple times, most recently here in the ED 2 months ago with negative workup including CT. she was referred to GI but has been unable to get in. endorses epigastric abd pain worsening over the past couple days, 6 or 7/10 severity at present, a/w multiple episodes of diarrhea daily including one black stool this am. n/v nbnb yesterday. denies fever chills urinary sx or back pain. Social - denies etoh. occasional vape pen. 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 - Past Surgical History Past Surgical History: Yes HEENT: Tonsil/Adenoidectomy - Present Medications Home Medications: Ambulatory Orders Medication Instructions Recorded Confirmed Escitalopram Oxalate [Lexapro] 1 tablet DAILY 11/24/20 11/24/20 metFORMIN [Glucophage] 1,000 mg PO DAILY 11/24/20 - Allergies Allergies/Adverse Reactions: Allergies Allergy/AdvReac Type Severity Reaction Status Date / Time No Known Drug Allergies Allergy Verified 09/17/20 10:08 - Social History Does the pt smoke?: Yes Smoking Status: Current every day smoker Does the pt drink ETOH?: Yes Does the pt have substance abuse?: Yes - Immunizations Immunizations are current?: Yes - POLST Patient has POLST: No PD ED PE NORMAL - Vitals Vital signs reviewed: Yes - General General: Alert and oriented X 3, Well developed/nourished, Other (anxious appearing) - HEENT HEENT: Atraumatic, PERRL, EOMI - Neck Neck: Supple, no meningeal sign - Cardiac Cardiac: Other (borderline tachycardic rate, regular rhythm) - Respiratory Respiratory: No respiratory distress, Clear bilaterally - Abdomen Abdomen: Other (diffuse discomfort to palpation, worst in epigastrium) - Derm Derm: Normal color, Warm and dry - Extremities Extremities: No deformity - Neuro Neuro: Alert and oriented X 3 - Psych Psych: Other (anxious affect) Results - Vitals Vitals: Vital Signs - 24 hr 11/24/20 11/24/20 11/24/20 20:35 21:31 22:49 Temperature 36.6 C 36.6 C 37.0 C Heart Rate 105 H 100 79 Respiratory 16 18 Rate Blood Pressure 177/95 H 160/90 H 143/92 H O2 Saturation 98 98 99 Oxygen O2 Source Room air - Labs Labs: Laboratory Tests 11/24/20 11/24/20 11/24/20 20:58 20:58 20:58 WBC 16.8 H RBC 4.68 Hgb 12.8 Hct 40.1 MCV 85.7 MCH 27.4 MCHC 31.9 L RDW 13.5 Plt Count 422 MPV 9.7 Neut # (Auto) Not Reportable Lymph # (Auto) Not Reportable Haakon # (Auto) Not Reportable Eos # (Auto) Not Reportable Baso # (Auto) Not Reportable Absolute Nucleated RBC Not Reportable Total Counted 100 Band Neuts % (Manual) 1 Reactive Lymphs % (Man) 9 Abnorm Lymph % (Manual) 0 Nucleated RBC % Not Reportable Neutrophils # (Manual) 10.2 H Lymphocytes # (Manual) 6.4 H Monocytes # (Manual) 0.2 Eosinophils # (Manual) 0.0 Basophils # (Manual) 0.0 Differential Comment MANUAL DIFFERENTIAL Platelet Estimate NORMAL (130-450,000) RBC Morph Micro Appear NORMAL APPEARANCE PT 13.0 H INR 1.2 Sodium 138 Potassium 3.4 L Chloride 104 Carbon Dioxide 23 Anion Gap 11.0 BUN 9 Creatinine 0.8 Estimated GFR (MDRD) 87 L Glucose 103 H Calcium 10.1 Total Bilirubin 0.6 AST 15 ALT 16 Alkaline Phosphatase 69 Total Protein 8.0 Albumin 4.7 Globulin 3.3 Albumin/Globulin Ratio 1.4 Lipase 47 Urine Color Urine Clarity Urine pH Ur Specific [place] Urine Protein Urine Glucose (UA) Urine Ketones Urine Occult Blood Urine Nitrite Urine Bilirubin Urine Urobilinogen Ur Leukocyte Esterase Urine RBC Urine WBC Ur Squamous Epith Cells Urine Bacteria Urine Culture Comments Urine HCG, Qual 11/24/20 21:40 WBC RBC Hgb Hct MCV MCH MCHC RDW Plt Count MPV Neut # (Auto) Lymph # (Auto) Haakon # (Auto) Eos # (Auto) Baso # (Auto) Absolute Nucleated RBC Total Counted Band Neuts % (Manual) Reactive Lymphs % (Man) Abnorm Lymph % (Manual) Nucleated RBC % Neutrophils # (Manual) Lymphocytes # (Manual) Monocytes # (Manual) Eosinophils # (Manual) Basophils # (Manual) Differential Comment Platelet Estimate RBC Morph Micro Appear PT INR Sodium Potassium Chloride Carbon Dioxide Anion Gap BUN Creatinine Estimated GFR (MDRD) Glucose Calcium Total Bilirubin AST ALT Alkaline Phosphatase Total Protein Albumin Globulin Albumin/Globulin Ratio Lipase Urine Color YELLOW Urine Clarity HAZY Urine pH 6.0 Ur Specific [place] >=1.030 H Urine Protein NEGATIVE Urine Glucose (UA) NEGATIVE Urine Ketones TRACE Urine Occult Blood LARGE H Urine Nitrite NEGATIVE Urine Bilirubin NEGATIVE Urine Urobilinogen 0.2 (NORMAL) Ur Leukocyte Esterase SMALL H Urine RBC 6-10 H Urine WBC 6-10 H Ur Squamous Epith Cells MANY Squamous H Urine Bacteria Few Urine Culture Comments NOT INDICATED Urine HCG, Qual NEGATIVE Procedures - General procedure General procedure: POCUS RUQ with visualization of normal kidney and liver. Gallbladder visualized without bladder wall thickening. Normal CBD diameter. no stones. neg son gamez sign. PD MEDICAL DECISION MAKING - ED course ED course: 25yF presents with persistent GI symptoms X several months after negative workup in ED 2 months ago aside from mild leukocytosis. now with WBC 16.8, otherwise noncontributory labs. She appears to have baseline elevated WBC and in the setting of vomiting this may be a reactive leukocytosis, especially given improvement with symptomatic care in ED. negative gamez sign. RUQ and RLQ nontender. low suspicion appendicitis, pancreatitis, gallstones. recent CT negative. bedside POCUS Gallbladder negative. d/w patient limitations of bedside u/s and she understands. discussed with patient need for GI follow up and strict return precautions were reinforced. Departure - Departure Disposition: 01 Home, Self Care Clinical Impression: Abdominal pain, Diarrhea, Nausea and vomiting Condition: Good Instructions: Abdominal Pain Follow-Up: Everton Flynn MD [Physician No Access] - Comments: You were seen in the emergency department for evaluation of stomach pain, nausea, and dark stools. Your labwork showed an increased white blood cell c ount, which is a nonspecific sign. If you have temperature higher than 100.4 by mouth or armpit thermometer you should come back to the emergency department for further evaluation. Please follow-up with your primary doctor for referral to gastroenterology. Return to the emergency department you have any new or worsening symptoms or other concerns. Below is a list of some foods recognized to stomach issues and how they affect the digestive tract: Coffee (with or without caffeine) and caffeinated beverages relax the lower esophageal sphincter. [place] fruits and juices such as orange, grapefruit and pineapple have high acid content. Sodas also have high acid content. Avoid processed foods and prepared foods. Try to make your own meals at home that are mild and healthy. Eat tofu, lean meats like chicken and fish, mild foods. Avoid excessively spicy foods.
[2020-11-24 21:58] LABS: BILIRUBIN,URINE NEGATIVE (NEGATIVE); GLUCOSE, URINE (UA) NEGATIVE (NEGATIVE); KETONES,URINE (UA) TRACE mg/dL (NEGATIVE); LEUKOCYTE ESTERASE, URINE SMALL (NEGATIVE); NITRITE,URINE NEGATIVE (NEGATIVE); OCCULT BLOOD,URINE LARGE (NEGATIVE); PROTEIN,URINE NEGATIVE (NEGATIVE); UROBILINOGEN,URINE 0.2 (NORMAL) E.U./dL (NORMAL)
[2020-11-24 22:00] LABS: CLARITY,URINE HAZY (CLEAR)
[2020-11-24 22:07] LABS: BACTERIA,URINE Few /HPF (None Seen); HCG UR QUAL NEGATIVE; SQUAMOUS EPITHELIAL CELL,UR MANY Squamous (<= Few)
[2020-11-24] MEDS ORDERED: ONDANSETRON ODT 4 MG Prepack 2 TL PRN (22:44)
[2020-11-24 22:50] VITALS: BP 143/92
[2020-11-24] MEDS ORDERED: diphenhydrAMINE ELIXIR 25 MG/10 ML UDC PO STA (22:55)
[2020-11-24] MEDS ORDERED: LIDOCAINE VISCOUS 2% 15 ML UDC MM STA (22:55)
[2020-11-24] MEDS ORDERED: MAG HYDROX/AL HYDROX/SIMETH 30 ML UDC PO STA (22:55)
== END 2020-11-24 23:27 | disposition home or self-care (01) ==
LOC: ED 20:29
DX: R10.13 Epigastric pain (principal); R19.7 Diarrhea, unspecified; R11.2 Nausea with vomiting, unspecified; D72.829 Elevated white blood cell count, unspecified; E11.9 Type 2 diabetes mellitus without complications; Z79.84 Long term (current) use of oral hypoglycemic drugs; F41.9 Anxiety disorder, unspecified; F17.200 Nicotine dependence, unspecified, uncomplicated
CPT/HCPCS: 36415; 80053; 81001; 81025; 83690; 85025; 85610; 96374; 96375; 99283; 99284; A9270; 82274; 87086

== ENCOUNTER 2020-12-14 17:34 | Emergency (ER) | payer BC ==
--- NOTE | 2020-12-14 17:57 | ED Physician Documentation ---
PD HPI LOWER EXT INJURY - Stated complaint Stated Complaint: KNEE INJ - History obtained from History obtained from: Patient - History of Present Illness PD HPI LOW EXT INJURY LOCATION: Left, Knee Type of injury: Fall Where injury occurred: Street Timing - onset: How many days ago (2) Timing - duration: Days (2) Timing - details: Gradual onset Pain level max: 9 Pain level now: 9 Improved by: Rest, Ice Worsened by: Moving, Palpating Associated symptoms: Swelling Contributing factors: No: Anticoagulated, Prior ortho surgery - Additional information Additional information: 25-year-old female states that she tripped and fell 2 nights ago, landing on the left knee. Now complains of swelling and pain. Worse with movement, better with rest. She fell onto concrete. 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: Other Psych: Anxiety - Past Surgical History Past Surgical History: Yes HEENT: Tonsil/Adenoidectomy - Present Medications Home Medications: Ambulatory Orders Medication Instructions Recorded Confirmed Escitalopram Oxalate [Lexapro] 20 mg ORAL DAILY 11/24/20 12/14/20 HYDROcod/ACETAM 5/325 [[place] 5/325] 1 - 2 ea PO Q6H PRN #14 tablet 12/14/20 Ibuprofen [Motrin] 800 mg PO Q8H PRN #30 tablet 12/14/20 - Allergies Allergies/Adverse Reactions: Allergies Allergy/AdvReac Type Severity Reaction Status Date / Time No Known Drug Allergies Allergy Verified 12/14/20 18:05 - Social History Does the pt smoke?: Yes Smoking Status: Current every day smoker Does the pt drink ETOH?: Yes Does the pt have substance abuse?: Yes - Immunizations Immunizations are current?: Yes - POLST Patient has POLST: No PD ED PE NORMAL - Vitals Vital signs reviewed: Yes - General General: Alert and oriented X 3, No acute distress - HEENT HEENT: Moist mucous membranes - Derm Derm: Warm and dry - Extremities Extremities: Other (Moderate size is joint effusion on the left knee. Tender to palpation over the patella with swelling. Neurovascularly intact. Unable to fully tolerate ligamentous testing secondary to pain. Otherwise normal exam ination of the left knee.) - Neuro Neuro: Alert and oriented X 3 Results - Vitals Vitals: Vital Signs - 24 hr 12/14/20 18:06 Temperature 36.8 C Heart Rate 88 Respiratory 16 Rate Blood Pressure 107/87 H O2 Saturation 99 Oxygen O2 Source Room air - Rads (name of study) Left knee x-ray Radiology: Final report received, EMP read contemporaneously, See rad report (Moderate joint effusion without acute fracture.) PD MEDICAL DECISION MAKING - ED course Complexity details: reviewed results, re-evaluated patient, considered differential, d/w patient ED course: .25-year-old female with a left knee contusion and knee effusion. Possible meniscus injury, but unable to tolerate testing at this time. Brayan bandage applied for compression. Placed on pain medication for home. We will have the patient follow-up with her doctor and/or orthopedics. I am prescribing a short course of short-acting opioid pain medication for this patient. I have reviewed the patients HEALTH INFORMATION DIRECTOR and no concerning findings were noted. I have discussed that the opioids are for short term therapy only, and will not be refilled from the ED. patient counseled regarding signs and symptoms for which I believe and urgent re-evaluation would be necessary. Patient with good understanding of and agreement to plan and is comfortable going home at this time This document was made in part using voice recognition software. While efforts are made to proofread this document, sound alike and grammatical errors may occur. Departure - Departure Disposition: 01 Home, Self Care Clinical Impression: Knee effusion, left Condition: Good Instructions: ED Effusion Knee Follow-Up: your,doctor in 1 week for repeat evaluation [Other] Prescriptions: Ibuprofen [Motrin] 800 mg PO Q8H PRN #30 tablet PRN Reason: PAIN &/OR FEVER HYDROcod/ACETAM 5/325 [[place] 5/325] 1 - 2 ea PO Q6H PRN #14 tablet PRN Reason: Pain Comments: Your prescriptions were sent to [facility] in [place]. Please follow-up with your doctor as needed for further care. You may bear weight as tolerated. Return if you worsen. The effusion should heal on its own. If you are still having pain in 1 week, you should have a repeat evaluation with your doctor and/or orthopedics. It is possible that you could have a meniscus injury underneath the swelling. I am prescribing a short course of narcotic pain medication for you. These are potentially dangerous and addictive medications that should be used carefully. These medications may constipate you. Take an [id number] stool softener (docusate) twice daily with plenty of water while taking these medications. If you go 24 hours without a bowel movement, take [id number] miralax, per package instructions. Do not drink or drive while taking these medications. If you received narcotic or sedating medications while in the emergency department, do not drive for 24 hours. Store this medication in a safe, secure place and out of reach of children. It is a violation of federal law to give or sell this medication to another person or to use in a manner other than prescribed. The ED will not refill narcotic prescriptions, including prescriptions lost or stolen. To dispose of unwanted medications: 1. [facility] at [address] in [place] has a medication drop box. They accept prescription medications (in pill form) Monday through Monday 9:00 a.m. to 5:00 p.m. 2. The [facility] accepts prescription medications (in pill form only) for disposal year round. Call for more information. 3. Contact the [facility] for the next [facility] sponsored prescription drug collection event. , [phone], or [phone]; Discharge Date/Time: 12/14/20 19:05
--- NOTE | 2020-12-14 18:08 | XRAY Report ---
PROCEDURE: Knee 4 View LT INDICATIONS: fall, L knee pain TECHNIQUE: 4 views of the left knee(s) were acquired. COMPARISON: None. FINDINGS: Bones: No fractures or dislocations. No suspicious bony lesions. Soft tissues: Moderate suprapatellar joint effusion is seen. No suspicious soft tissue calcifications . IMPRESSION: No gross acute left knee fracture or dislocation. Moderate joint effusion. Reviewed by: Jesse Francis MD on 12/14/2020 6:07 PM PDT Approved by: Jesse Francis MD on 12/14/2020 6:07 PM PDT Station ID: [id number]
[2020-12-14 18:09] VITALS: BP 107/87
[2020-12-14] MEDS ORDERED: HYDROcod/ACETAM 5/325 MG TABLET PO STA (18:31)
== END 2020-12-14 19:05 | disposition home or self-care (01) ==
LOC: ED 17:34
DX: M25.462 Effusion, left knee (principal); W01.198A Fall on same level from slipping, tripping and stumbling with subsequent striking against other object, initial encounter; F17.200 Nicotine dependence, unspecified, uncomplicated
CPT/HCPCS: 73564; 99283; A9270

== ENCOUNTER 2020-12-16 18:27 | Emergency (ER) | payer OTHER, BC ==
[2020-12-16] MEDS ORDERED: KETOROLAC 60 MG/2 ML VIAL IM STA (19:38)
[2020-12-16] MEDS ORDERED: HYDROmorphone 1 MG/ML CARPUJECT IM STA (19:38)
--- NOTE | 2020-12-16 19:49 | ED Physician Documentation ---
History of Present Illness - Stated complaint Stated Complaint: LT KNEE PX - Chief complaint Chief Complaint: Ext Problem - History obtained from History obtained from: Patient - History of Present Illness Timing: How many days ago (4) Pain level max: 9 Pain level now: 9 - Additonal information Additional information: Patient is a 25-year-old female Presents to the emergency department with left knee pain. She originally injured the knee 4 days ago when she tripped fell and landed on the knee in a parking lot. Today she was at work and was going to a "[employer]". She states that the pain in her knee increased at that time. Worse with walking, better with rest. 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 : None HEENT: None Psych: Anxiety Musculoskeletal: None Derm: None - Past Surgical History Past Surgical History: Yes HEENT: Tonsil/Adenoidectomy - Present Medications Home Medications: Ambulatory Orders Medication Instructions Recorded Confirmed Escitalopram Oxalate [Lexapro] 20 mg ORAL DAILY 11/24/20 12/14/20 HYDROcod/ACETAM 5/325 [[place] 5/325] 1 - 2 ea PO Q6H PRN #14 tablet 12/14/20 Ibuprofen [Motrin] 800 mg PO Q8H PRN #30 tablet 12/14/20 Meloxicam [Mobic] 15 mg PO DAILY PRN #20 tablet 12/16/20 Oxycodone HCl/Acetaminophen 1 - 2 each PO Q6H PRN #14 tablet 12/16/20 [Percocet 5-325 mg Tablet] Promethazine [Phenergan] 25 mg PO Q6H PRN #10 tab 12/16/20 - Allergies Allergies/Adverse Reactions: Allergies Allergy/AdvReac Type Severity Reaction Status Date / Time No Known Drug Allergies Allergy Verified 12/16/20 18:36 - Social History Does the pt smoke?: Yes Smoking Status: Current every day smoker Does the pt drink ETOH?: Yes Does the pt have substance abuse?: Yes - Immunizations Immunizations are current?: Yes - POLST Patient has POLST: No PD ED PE NORMAL - Vitals Vital signs reviewed: Yes - General General: Alert and oriented X 3, No acute distress - HEENT HEENT: Moist mucous membranes - Derm Derm: Warm and dry - Extremities Extremities: Other (Moderate joint effusion on the left knee. Tender to palpation along the medial and lateral joint line. Neurovascularly intact. Unable tolerates ligamentous and meniscus testing.) - Neuro Neuro: Alert and oriented X 3 - Psych Psych: Normal mood, Normal affect Results - Vitals Vitals: Vital Signs - 24 hr 12/16/20 12/16/20 18:32 20:09 Temperature 36.9 C 36.8 C Heart Rate 140 H 91 Respiratory 20 16 Rate Blood Pressure 147/115 H 146/94 H O2 Saturation 97 97 Oxygen O2 Source Room air PD MEDICAL DECISION MAKING - ED course Complexity details: reviewed results, re-evaluated patient, considered differential, d/w patient ED course: 25-year-old female with a reinjury of her left knee. This likely represents a meniscal injury. We will place her in a articulating knee brace. Given crutche s. Will place on pain medication for home and have her follow-up with orthopedics for further care and repeat evaluation of the swelling and pain have decreased. I am prescribing a short course of short-acting opioid pain medication for this patient. I have reviewed the patients PICKLE CUTTER and no concerning findings were noted. I have discussed that the opioids are for short term therapy only, and will not be refilled from the ED. Departure - Departure Disposition: 01 Home, Self Care Clinical Impression: Knee effusion, left Condition: Good Instructions: ED Effusion Knee Follow-Up: Neville Clemons DO [Physician No Access] - Chato Craven MD [Provider Admit Priv/Credential] - Within 1 week Prescriptions: Meloxicam [Mobic] 15 mg PO DAILY PRN #20 tablet PRN Reason: pain Oxycodone HCl/Acetaminophen [Percocet 5-325 mg Tablet] 1 - 2 each PO Q6H PRN #14 tablet PRN Reason: pain Promethazine [Phenergan] 25 mg PO Q6H PRN #10 tab PRN Reason: Nausea / Vomiting Comments: You are to stay in the brace and keep weight off of the leg until released by orthopedics. You may have a meniscus injury, this will need to be tested when the swelling has decreased in your knee. Your prescriptions were sent to [facility] in [place]. Return if you worsen. I am prescribing a short course of narcotic pain medication for you. These are potentially dangerous and addictive medications that should be used carefully. These medications may constipate you. Take an nyuq-vqn-kvtgsrq stool softener (docusate) twice daily with plenty of water while taking these medications. If you go 24 hours without a bowel movement, take ixrs-ifs-afhlrrk miralax, per package instructions. Do not drink or drive while taking these medications. If you received narcotic or sedating medications while in the emergency department, do not drive for 24 hours. Store this medication in a safe, secure place and out of reach of children. It is a violation of federal law to give or sell this medication to another person or to use in a manner other than prescribed. The ED will not refill narcotic prescriptions, including prescriptions lost or stolen. To dispose of unwanted medications: 1. [facility] at [address] in [place] has a medication drop box. They accept prescription medications (in pill form) Monday through Monday 9:00 a.m. to 5:00 p.m. 2. The [facility] accepts prescription medications (in pill form only) for disposal year round. Call for more information. 3. Contact the [facility] for the next [facility] sponsored prescription drug collection event. , [phone], or [phone]; Forms: Activity restrictions Discharge Date/Time: 12/16/20 20:51
[2020-12-16 20:10] VITALS: BP 146/94
== END 2020-12-16 20:51 | disposition home or self-care (01) ==
LOC: ED 18:27
DX: M25.462 Effusion, left knee (principal); S89.92XA Unspecified injury of left lower leg, initial encounter; W01.0XXA Fall on same level from slipping, tripping and stumbling without subsequent striking against object, initial encounter; Y92.481 Parking lot as the place of occurrence of the external cause; F17.200 Nicotine dependence, unspecified, uncomplicated
CPT/HCPCS: 96372; 99283; J1170

== ENCOUNTER 2020-12-28 14:01 | Outpatient (CLI) | payer BC ==
--- NOTE | 2020-12-28 16:29 | XRAY Report ---
PROCEDURE: Knee 4 View LT INDICATIONS: LEFT KNEE PAIN TECHNIQUE: 4 views of the left knee(s) were acquired. COMPARISON: None. FINDINGS: Bones: No fractures or dislocations. No suspicious bony lesions. Soft tissues: No joint effusion. No suspicious soft tissue calcifications. IMPRESSION: Normal examination. Reviewed by: Lali Nguyen MD, PhD on 12/28/2020 4:27 PM PST Approved by: Lali Nguyen MD, PhD on 12/28/2020 4:27 PM PST Station ID: [id number]
== END 2020-12-28 23:59 | disposition home or self-care (01) ==
LOC: DI.N 14:01
PROVIDERS: ATTEND Physician Assistant
DX: M25.562 Pain in left knee (principal)

== ENCOUNTER 2021-08-31 10:13 | Outpatient (CLI) | payer BC ==
[2021-08-31 21:18] LABS: ESTIMATED AVERAGE GLUCOSE 126 mg/dL (70-100)
[2021-09-02 04:08] LABS: HCV AB <0.1 s/co ratio (0.0-0.9)
== END 2021-08-31 10:14 | disposition home or self-care (01) ==
LOC: LAB.N 10:13
PROVIDERS: ATTEND Physician Assistant
DX: R73.01 Impaired fasting glucose (principal); Z72.89 Other problems related to lifestyle
CPT/HCPCS: 36415; 83036; 86803

== ENCOUNTER 2021-11-25 09:43 | Emergency (ER) | payer BC ==
[2021-11-25 10:08] LABS: BASOPHILS % (AUTO) 0.3 %; EOSINOPHILS % (AUTO) 2.1 %; HCT - HEMATOCRIT 38.5 % (37.0-47.0); HGB - HEMOGLOBIN 12.3 g/dL (12.0-16.0); LYMPHOCYTES % (AUTO) 40.2 %; MEAN CORPUSCULAR HEMOGLOBIN 27.2 pg (27.0-31.0); MEAN CORPUSCULAR HGB CONC 31.9 g/dL (32.0-36.0); MEAN PLATELET VOLUME 9.4 fL (7.9-10.8); MONOCYTES % (AUTO) 4.5 %; NEUTROPHILS % (AUTO) 52.6 %; PLT - PLATELET COUNT 362 10^3/uL (130-450); RED BLOOD COUNT 4.53 10^6/uL (4.20-5.40); RED CELL DISTRIBUTION WIDTH 13.5 % (12.0-15.0); WHITE BLOOD COUNT 12.5 x10^3/uL (4.8-10.8)
[2021-11-25 10:11] LABS: SLIDE REVIEW? Indicated
[2021-11-25 10:12] LABS: ABNORMAL LYMPHS % (MANUAL) 0 %; BAND NEUTROPHILS % (MANUAL) 0 %
[2021-11-25 10:23] LABS: ALBUMIN 4.1 g/dL (3.2-5.5); ALBUMIN/GLOBULIN RATIO 1.1 (1.0-2.2); BILIRUBIN,TOTAL 0.4 mg/dL (0.2-1.0); CALCIUM 9.6 mg/dL (8.5-10.3); CREATININE 0.8 mg/dL (0.4-1.0); POTASSIUM 3.9 mmol/L (3.5-5.0); TOTAL PROTEIN 7.8 g/dL (6.7-8.2)
[2021-11-25 10:36] LABS: EOSINOPHILS # (MANUAL) 0.5 10^3/uL (0-0.7); LYMPHOCYTES # (MANUAL) 5.9 10^3/uL (1.5-3.5); LYMPHOCYTES % (MANUAL) 33 %; MONOCYTES # (MANUAL) 0.8 10^3/uL (0.0-1.0); NEUTROPHILS # (MANUAL) 5.4 10^3/uL (1.5-6.6); REACTIVE LYMPHS % (MANUAL) 14 %
[2021-11-25 10:37] LABS: DIFFERENTIAL COMMENT MANUAL DIFFERENTIAL; RBC MORPHOLOGY (MULTIPLE) 1+ ANISOCYTOSIS (NORMAL)
[2021-11-25] MEDS ORDERED: KETOROLAC 15 MG/ML VIAL IVP STA (11:51)
--- NOTE | 2021-11-25 11:53 | ED Physician Documentation ---
PD HPI CHEST PAIN - Stated complaint Stated Complaint: CHEST PX - Chief complaint Chief Complaint: Cardiac - History obtained from History obtained from: Patient - Additional information Additional information: 26-year-old woman who is otherwise healthy had COVID about a month ago. She was woken this morning at 1 AM with left upper anterior chest pain radiating to the jaw and back. Nothing makes it better or worse. She tried some ibuprofen which was not helpful. She is not short of breath per se but the pain does worsen with deep breathing. She denies pedal edema or calf pain. No history of PE or DVT, no recent travel but she is on control. Review of Systems Ten Systems: 10 systems reviewed and negative Constitutional: reports: Reviewed and negative Cardiac: reports: Chest pain / pressure. denies: Palpitations Respiratory: denies: Dyspnea, Cough PD PAST MEDICAL HISTORY - Past Medical History Cardiovascular: None Respiratory: None Neuro: None Endocrine/Autoimmune: Other GI: None TREATMENT COORDINATOR: Other : None HEENT: None Psych: Anxiety Musculoskeletal: None Derm: None - Past Surgical History Past Surgical History: Yes HEENT: Tonsil/Adenoidectomy - Present Medications Home Medications: Ambulatory Orders Medication Instructions Recorded Confirmed Escitalopram Oxalate [Lexapro] 20 mg ORAL DAILY 11/24/20 12/14/20 HYDROcod/ACETAM 5/325 [[place]onson 5/325] 1 - 2 ea PO Q6H PRN #14 tablet 12/14/20 Ibuprofen [Motrin] 800 mg PO Q8H PRN #30 tablet 12/14/20 Meloxicam [Mobic] 15 mg PO DAILY PRN #20 tablet 12/16/20 Oxycodone HCl/Acetaminophen 1 - 2 each PO Q6H PRN #14 tablet 12/16/20 [Percocet 5-325 mg Tablet] Promethazine [Phenergan] 25 mg PO Q6H PRN #10 tab 12/16/20 HYDROcod/ACETAM 5/325 [Bronson 5/325] 1 - 2 tab PO Q6H PRN #10 tablet 11/25/21 - Allergies Allergies/Adverse Reactions: Allergies Allergy/AdvReac Type Severity Reaction Status Date / Time No Known Drug Allergies Allergy Verified 11/25/21 09:52 - Social History Does the pt smoke?: Yes Smoking Status: Current every day smoker Does the pt drink ETOH?: Yes Does the pt have substance abuse?: Yes - Immunizations Immunizations are current?: Yes - POLST Patient has POLST: No PD ED PE NORMAL - Vitals Vital signs reviewed: Yes (Mild resting tachycardia) - General General: Alert and oriented X 3, No acute distress - HEENT HEENT: PERRL, EOMI - Neck Neck: Supple, no meningeal sign, No bony TTP - Cardiac Cardiac: RRR, No murmur - Respiratory Respiratory: No respiratory distress, Clear bilaterally - Abdomen Abdomen: Normal bowel sounds, Soft, Non tender - Back Back: No CVA TTP, No spinal TTP - Derm Derm: Normal color, Warm and dry - Extremities Extremities: No edema, No calf tenderness / cord - Neuro Neuro: Alert and oriented X 3, Normal speech Results - Vitals Vitals: Vital Signs - 24 hr 11/25/21 11/25/21 09:46 11:31 Temperature 36.5 C Heart Rate 97 92 Respiratory 18 Rate Blood Pressure 160/97 H 154/93 H O2 Saturation 100 99 Oxygen O2 Source Room air - EKG (time done) 0944 Rate: Rate (enter#) (93) Rhythm: NSR [place]: Normal Intervals: Normal MD QRS: Normal Ischemia: Non specific changes (Nonspecific changes, borderline S1Q3T3). No: ST elevation c/w ischemia, ST depression - Labs Labs: Laboratory Tests 11/25/21 11/25/21 11/25/21 10:04 10:04 10:04 WBC 12.5 H RBC 4.53 Hgb 12.3 Hct 38.5 MCV 85.0 MCH 27.2 MCHC 31.9 L RDW 13.5 Plt Count 362 MPV 9.4 Neut # (Auto) Not Reportable Lymph # (Auto) Not Reportable [place] # (Auto) Not Reportable Eos # (Auto) Not Reportable Baso # (Auto) Not Reportable Absolute Nucleated RBC Not Reportable Total Counted 100 Band Neuts % (Manual) 0 Reactive Lymphs % (Man) 14 Abnorm Lymph % (Manual) 0 Nucleated RBC % Not Reportable Neutrophils # (Manual) 5.4 Lymphocytes # (Manual) 5.9 H Monocytes # (Manual) 0.8 Eosinophils # (Manual) 0.5 Basophils # (Manual) 0.0 Differential Comment MANUAL DIFFERENTIAL Manual Slide Review Indicated RBC Morph Micro Appear 1+ ANISOCYTOSIS Sodium 139 Potassium 3.9 Chloride 105 Carbon Dioxide 25 Anion Gap 9.0 BUN 9 Creatinine 0.8 Estimated GFR (MDRD) 86 L Glucose 121 H Calcium 9.6 Total Bilirubin 0.4 AST 13 ALT 12 Alkaline Phosphatase 62 Troponin I High Sens 5.1 Total Protein 7.8 Albumin 4.1 Globulin 3.7 Albumin/Globulin Ratio 1.1 Lipase 28 PD MEDICAL DECISION MAKING - ED course ED course: 26-year-old woman with pleuritic chest pain, it is reproducible on exam. No leg symptoms or signs. That said with the tachycardia, recent COVID, and being on control PE is of course considered. I discussed with the patient the pros and cons of D-dimer versus CT angiography initially and she opted for the latter. Departure - Departure Disposition: Home, Self Care Clinical Impression: Pleuritic chest pain Condition: Good Record reviewed to determine appropriate education?: Yes Instructions: ED Chest Pain NonCardiac Prescriptions: HYDROcod/ACETAM 5/325 [Bronson 5/325] 1 - 2 tab PO Q6H PRN #10 tablet PRN Reason: Pain Comments: I sent your prescription electronically to [facility] in [place]. Labs, troponin, EKG, and CT angiography all without pertinent positive findings. Call your doctor to arrange a follow-up appointment, make the next available appointment. In the interim, return anytime if worse or if new symptoms develop. I am prescribing a short course of narcotic pain medication for you. These are potentially dangerous and addictive medications that should be used carefully. These medications may constipate you. Take an iiic-pgf-vuczuos stool softener (docusate) twice daily with plenty of water while taking these medications. If you go 24 hours without a bowel movement, take pxhx-rwv-lscdqna miralax, per package instructions. Do not drink or drive while taking these medications. If you received narcotic or sedating medications while in the emergency department, do not drive for 24 hours. Store this medication in a safe, secure place and out of reach of children. It is a violation of federal law to give or sell this medication to another person or to use in a manner other than prescribed. The ED will not refill narcotic prescriptions, including prescriptions lost or stolen. To dispose of unwanted medications: 1. [facility] at [address] in [place] has a medication drop box. They accept prescription medications (in pill form) Monday through Monday 9:00 a.m. to 5:00 p.m. 2. The [facility] Police Department accepts prescription medications (in pill form only) for disposal year round. Call for more information. 3. Contact the [facility] for the next [facility] sponsored prescription drug collection event. , [phone], or [phone]; Note that many narcotic pain relievers also contain Tylenol/acetaminophen. Please ensure that your total dose of acetaminophen from all sources does not exceed 3 g (3000 mg) per day.
[2021-11-25] MEDS ORDERED: iohexoL-300 100 ML VIAL ONE (11:55)
[2021-11-25] MEDS ORDERED: iohexoL-300 100 ML VIAL IVP ONE (12:32)
--- NOTE | 2021-11-25 12:40 | CT Report ---
PROCEDURE: ANGIO CHEST W/WO INDICATIONS: Pleuritic chest pain, recent COVID, PE protocol CONTRAST: IV CONTRAST: Optiray 320 ml: 80 PO CONTRAST: *NO PO CONTRAST TECHNIQUE: After the administration of intravenous contrast, 2 mm axial images were acquired from the pulmonary apices to the posterior costophrenic angles during the arterial phase. In addition, 1 mm lung kernel and 5 mm soft tissue kernel reconstructions were performed. 3-dimensional coronal oblique maximum int ensity projection (MIP) reformats, 8 mm axial MIP, and 5 mm coronal and sagittal MPR reformats were t hen performed through the thorax. For radiation dose reduction, the following was used: automated exp osure control, adjustment of mA and/or kV according to patient size. COMPARISON: None. FINDINGS: Image quality: Excellent. Pulmonary arteries: Pulmonary arteries are normal in size, and demonstrate no intraluminal filling d efects to suggest central pulmonary embolism. Lungs and pleura: Lungs are clear. No pleural effusions or pneumothorax. Central and peripheral ai rways are patent. Mediastinum: Heart size is normal, without pericardial effusion. No mediastinal or hilar adenopathy . Thoracic aorta is normal in caliber and enhancement. Esophagus is normal in caliber, without hiat al hernia. Bones and chest wall: No suspicious bony lesions. Ribs and thoracic spine appear intact throughout. No axillary or supraclavicular adenopathy. The thyroid is normal in size and there are no incident al findings. Abdomen: Visualized upper abdominal solid organs appear normal in the early arterial phase of enhanc ement. IMPRESSION: No acute pulmonary embolus. No acute pulmonary findings. Reviewed by: Ashley Rowan MD on 11/25/2021 12:38 PM PDT Approved by: Ashley Rowan MD on 11/25/2021 12:38 PM PDT Station ID: [id number]
[2021-11-25] MEDS ORDERED: MORPHINE 2 MG/ML CARPUJECT IVP STA (13:11)
[2021-11-25 14:07] VITALS: BP 134/93
== END 2021-11-25 14:08 | disposition home or self-care (01) ==
LOC: ED 09:43
DX: R07.81 Pleurodynia (principal); F17.200 Nicotine dependence, unspecified, uncomplicated
CPT/HCPCS: 36415; 71275; 80053; 83690; 84484; 85025; 93005; 96374; 96375; 99284; Q9967; 85379

== ENCOUNTER 2022-05-25 17:04 | Day surgery (SDC) | payer BC ==
[2022-05-25] MEDS ORDERED: ONDANSETRON 4 MG/2 ML VIAL IVP STA (17:16)
[2022-05-25] MEDS ORDERED: MORPHINE 2 MG/ML CARPUJECT IVP STA ×2 (17:16→18:25)
--- NOTE | 2022-05-25 17:17 | ED Physician Documentation ---
PD HPI ABD PAIN - Stated complaint Stated Complaint: N/V - Chief complaint Chief Complaint: Abd Pain - History obtained from History obtained from: Patient - Additional information Additional information: Generally healthy 27-year-old woman with no history of abdominal surgeries and no stated possibility of presents with right-sided abdominal pain generally worsening for the last 2 days associated with single episode of vomiting 2 days ago and poor appetite. Decreased bowel movements, but she is not eating much. She had a temperature of 99. 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 HEENT: None Psych: Anxiety Musculoskeletal: None Derm: None - Past Surgical History Past Surgical History: Yes HEENT: Tonsil/Adenoidectomy - Present Medications Home Medications: Ambulatory Orders Medication Instructions Recorded Confirmed Escitalopram Oxalate [Lexapro] 20 mg ORAL DAILY 11/24/20 05/25/22 Buspirone HCl 7.5 mg PO BID 05/25/22 05/25/22 - Allergies Allergies/Adverse Reactions: Allergies Allergy/AdvReac Type Severity Reaction Status Date / Time No Known Drug Allergies Allergy Verified 05/25/22 17:12 - Social History Does the pt smoke?: Yes Smoking Status: Current every day smoker Does the pt drink ETOH?: Yes Does the pt have substance abuse?: Yes - Immunizations Immunizations are current?: Yes - POLST Patient has POLST: No PD ED PE NORMAL - Vitals Vital signs reviewed: Yes - General General: Alert and oriented X 3, No acute distress - Abdomen Abdomen: Normal bowel sounds, Soft, Other (Tender in the right upper more than right lower quadrant with positive Arnold sign. No other surgical signs.) - Back Back: No CVA TTP, No spinal TTP - Derm Derm: Normal color, Warm and dry - Extremities Extremities: No edema, No calf tenderness / cord - Neuro Neuro: Alert and oriented X 3, Normal speech Results - Vitals Vitals: Vital Signs - 24 hr 05/25/22 05/25/22 05/25/22 17:08 17:46 18:40 Temperature 36.8 C Heart Rate 110 H 98 74 Respiratory 16 16 15 Rate Blood Pressure 152/102 H 143/90 H 122/82 H O2 Saturation 100 96 100 05/25/22 19:07 Temperature Heart Rate Respiratory 17 Rate Blood Pressure O2 Saturation 99 Oxygen O2 Source Room air - Labs Labs: Laboratory Tests 05/25/22 05/25/22 05/25/22 17:20 17:30 17:30 WBC 15.8 H RBC 4.45 Hgb 12.2 Hct 37.5 MCV 84.3 MCH 27.4 MCHC 32.5 RDW 13.3 Plt Count 403 MPV 9.6 Neut # (Auto) Not Reportable Lymph # (Auto) Not Reportable [place] # (Auto) Not Reportable Eos # (Auto) Not Reportable Baso # (Auto) Not Reportable Absolute Nucleated RBC Not Reportable Total Counted 100 Band Neuts % (Manual) 1 Reactive Lymphs % (Man) 18 Abnorm Lymph % (Manual) 0 Nucleated RBC % Not Reportable Neutrophils # (Manual) 10.3 H Lymphocytes # (Manual) 4.7 H Monocytes # (Manual) 0.6 Eosinophils # (Manual) 0.2 Basophils # (Manual) 0.0 Differential Comment MANUAL DIFFERENTIAL Platelet Estimate NORMAL (130-450,000) Platelet Morphology NORMAL APPEARANCE RBC Morph Micro Appear NORMAL APPEARANCE Sodium 137 Potassium 3.1 L Chloride 103 Carbon Dioxide 24 Anion Gap 10.0 BUN 11 Creatinine 0.7 Estimated GFR (MDRD) 100 Glucose 106 H Calcium 9.6 Total Bilirubin 0.3 AST 16 ALT 17 Alkaline Phosphatase 77 Total Protein 8.2 Albumin 4.4 Globulin 3.8 Albumin/Globulin Ratio 1.2 Lipase 31 Urine Color YELLOW Urine Clarity HAZY Urine pH 5.5 Ur Specific [place] >=1.030 H Urine Protein NEGATIVE Urine Glucose (UA) NEGATIVE Urine Ketones 40 H Urine Occult Blood MODERATE H Urine Nitrite NEGATIVE Urine Bilirubin NEGATIVE Urine Urobilinogen 0.2 (NORMAL) Ur Leukocyte Esterase NEGATIVE Urine RBC 6-10 H Urine WBC 4-5 Ur Squamous Epith Cells MANY Squamous H Urine Bacteria Many H Ur Microscopic Review INDICATED Urine Culture Comments NOT INDICATED Urine HCG, Qual NEGATIVE PD Medical Decision Making - ED course ED course: 27-year-old woman presents with acute right-sided abdominal pain. Initially felt to be upper so sent for an ultrasound which did not show any biliary issues. This was followed by a CT which on my preliminary read shows appendicitis. CBC showing leukocytosis at 15,000. CMP relatively normal. Urinalysis and test unremarkable. Spoke with Dr. Wilkinson, our on-call surgeon at approximately 7:45 PM who will come in and see the patient. She plans to give antibiotics in the OR and declines for us to order antibiotics here. Departure - Departure Disposition: ED Transfer to [facility] Clinical Impression: Appendicitis Qualifiers: Appendicitis type: acute appendicitis Acute appendicitis type: with localized peritonitis Appendicitis gangrene presence: without gangrene Appendicitis perforation presence: without perforation Appendicitis abscess presence: without abscess Qualified Code(s): K35.30 - Acute appendicitis with localized peritonitis, without perforation or gangrene Condition: Stable
[2022-05-25 17:24] LABS: BILIRUBIN,URINE NEGATIVE (NEGATIVE); GLUCOSE, URINE (UA) NEGATIVE (NEGATIVE); KETONES,URINE (UA) 40 mg/dL (NEGATIVE); LEUKOCYTE ESTERASE, URINE NEGATIVE (NEGATIVE); NITRITE,URINE NEGATIVE (NEGATIVE); OCCULT BLOOD,URINE MODERATE (NEGATIVE); PH,URINE 5.5 PH (5.0-7.5); PROTEIN,URINE NEGATIVE (NEGATIVE); UROBILINOGEN,URINE 0.2 (NORMAL) E.U./dL (NORMAL)
[2022-05-25 17:34] LABS: CLARITY,URINE HAZY (CLEAR); HCG UR QUAL NEGATIVE
[2022-05-25 17:35] LABS: BACTERIA,URINE Many /HPF (None Seen); SQUAMOUS EPITHELIAL CELL,UR MANY Squamous (<= Few)
[2022-05-25 17:41] LABS: BASOPHILS % (AUTO) 0.3 %; EOSINOPHILS % (AUTO) 1.5 %; HCT - HEMATOCRIT 37.5 % (37.0-47.0); HGB - HEMOGLOBIN 12.2 g/dL (12.0-16.0); LYMPHOCYTES % (AUTO) 36.6 %; MEAN CORPUSCULAR HEMOGLOBIN 27.4 pg (27.0-31.0); MEAN CORPUSCULAR HGB CONC 32.5 g/dL (32.0-36.0); MEAN CORPUSCULAR VOLUME 84.3 fL (81.0-99.0); MEAN PLATELET VOLUME 9.6 fL (7.9-10.8); MONOCYTES % (AUTO) 4.4 %; NEUTROPHILS % (AUTO) 56.9 %; PLT - PLATELET COUNT 403 10^3/uL (130-450); RED BLOOD COUNT 4.45 10^6/uL (4.20-5.40); RED CELL DISTRIBUTION WIDTH 13.3 % (12.0-15.0); WHITE BLOOD COUNT 15.8 x10^3/uL (4.8-10.8)
[2022-05-25 17:44] LABS: ABNORMAL LYMPHS % (MANUAL) 0 %
[2022-05-25 17:58] LABS: ALBUMIN 4.4 g/dL (3.2-5.5); ALBUMIN/GLOBULIN RATIO 1.2 (1.0-2.2); BILIRUBIN,TOTAL 0.3 mg/dL (0.2-1.0); CALCIUM 9.6 mg/dL (8.5-10.3); CREATININE 0.7 mg/dL (0.4-1.0); POTASSIUM 3.1 mmol/L (3.5-5.0); TOTAL PROTEIN 8.2 g/dL (6.7-8.2)
[2022-05-25 18:10] LABS: BAND NEUTROPHILS % (MANUAL) 1 %; DIFFERENTIAL COMMENT MANUAL DIFFERENTIAL; EOSINOPHILS # (MANUAL) 0.2 10^3/uL (0-0.7); LYMPHOCYTES # (MANUAL) 4.7 10^3/uL (1.5-3.5); LYMPHOCYTES % (MANUAL) 12 %; MONOCYTES # (MANUAL) 0.6 10^3/uL (0.0-1.0); NEUTROPHILS # (MANUAL) 10.3 10^3/uL (1.5-6.6); PLATELET ESTIMATE, MANUAL NORMAL (130-450,000) (NORMAL); PLATELET MORPHOLOGY NORMAL APPEARANCE (NORMAL); RBC MORPHOLOGY (MULTIPLE) NORMAL APPEARANCE (NORMAL); REACTIVE LYMPHS % (MANUAL) 18 %
[2022-05-25] MEDS ORDERED: KETOROLAC 15 MG/ML VIAL IVP STA (18:25)
--- NOTE | 2022-05-25 19:02 | Ultrasound Report ---
PROCEDURE: Abdomen Limited INDICATIONS: ruq pain TECHNIQUE: Real-time focused scanning was performed of the abdomen, with image documentation. COMPARISONS: Correlation is made with prior abdominal CT, 09/17/2020. FINDINGS: Liver: The liver demonstrates normal size. The liver demonstrates moderately increased echogenicit y, which limits ultrasound sensitivity for detection of masses. However, there is a hypoechoic nonvas cular lesion seen involving the right liver that measures approximately 2 cm. The main portal vein de monstrates normal size and hepatopedal flow. Gallbladder: Unremarkable. Biliary ducts: Intrahepatic bile ducts are non-dilated. Extrahepatic bile duct caliber measures 3 m m. Normal is 6-7 mm or less in diameter, or 10 mm or less post-cholecystectomy. Pancreas: The pancreas is obscured. Right kidney: Normal in size and echotexture. Right kidney measures 10.2 cm long. No hydronephrosis or nephrolithiasis. No solid masses. No complex renal cystic lesions which require follow-up. Aorta: Visualized aorta is normal in caliber at less than 3 cm. IVC: Intrahepatic inferior vena cava is patent. Miscellaneous: No free abdominal fluid. IMPRESSION: 2 cm hypoechoic liver mass seen. When clinically appropriate, please consider dedicated follow-up andreea er protocol MRI for further evaluation. Note: Concordant preliminary findings given by the refrigeration service technician upon the completion of the examination to Dr. Hernández. Reviewed by: Alex Rodas MD on 05/25/2022 6:00 PM ALEJA Approved by: Alex Rodas MD on 05/25/2022 6:00 PM ALEJA Station ID: [id number]
[2022-05-25] MEDS ORDERED: iohexoL-300 100 ML VIAL ONE (19:09)
--- NOTE | 2022-05-25 19:55 | CT Report ---
PROCEDURE: ABDOMEN/PELVIS W INDICATIONS: R abd pain CONTRAST: 100mL Omni 300 TECHNIQUE: After the administration of IV contrast, 5 mm thick sections acquired from the diaphragms to the symp hysis. 5 mm thick coronal and sagittal reformats were acquired. For radiation dose reduction, the f ollowing was used: automated exposure control, adjustment of mA and/or kV according to patient size. COMPARISON: CT of abdomen and pelvis with, 09/17/2020 and 05/21/2020 FINDINGS: Image quality: Excellent. Lung bases and heart: Unremarkable. Liver: Normal size. Mild hepatic steatosis. Gallbladder and biliary tree: Spleen: Unremarkable. Pancreas: Unremarkable. Adrenals: Unremarkable. Kidneys and ureters: Unremarkable. Bowel and peritoneum: Appendix is large measuring 10 mm in diameter. There is mild periappendiceal st randing. No bowel distension. No pathologic free fluid. Lymph nodes: Mildly prominent mesenteric lymph nodes are noted in the right lower quadrant, likely re active. No retroperitoneal adenopathy. Vessels: Unremarkable. PELVIS Reproductive organs: Unremarkable. Bladder: Unremarkable. Lymph nodes: Unremarkable. Bones: No aggressive osseous abnormality. Other: None. IMPRESSION: Acute appendicitis. No findings to suggest appendiceal perforation. No abscess. Reviewed by: Marilia Kay MD on 05/25/2022 7:53 PM PDT Approved by: Marilia Kay MD on 05/25/2022 7:53 PM PDT Station ID: [id number]
[2022-05-25] MEDS ORDERED: PROPOFOL 200 MG/20 ML VIAL IVP ONE (20:07)
[2022-05-25] MEDS ORDERED: DEXAMETHASONE 4 MG/ML VIAL ONE (20:07)
[2022-05-25] MEDS ORDERED: ROCURONIUM 50 MG/5 ML VIAL ONE (20:07)
[2022-05-25] MEDS ORDERED: ONDANSETRON 4 MG/2 ML VIAL ONE (20:07)
[2022-05-25] MEDS ORDERED: LIDOCAINE-PF 2% 10 ML AMP SUBQ ONE (20:08)
[2022-05-25] MEDS ORDERED: MIDAZOLAM 2 MG/2 ML VIAL ONE (20:09)
[2022-05-25] MEDS ORDERED: fentaNYL 100 MCG/2 ML VIAL ONE (20:10)
[2022-05-25] MEDS ORDERED: BUPIVACAINE 0.25% PF 30 ML VIAL ONE (20:23)
[2022-05-25] MEDS ORDERED: LIDOCAINE MPF 2%-EPI 1:200000 20 ML VIAL ONE (20:23)
--- NOTE | 2022-05-25 20:25 | ANESTHESIA ---
Pre-Anesthesia VS, & Labs - Diagnosis appendicitis - Procedure laparoscopic appendectomy Vital Signs: Temp Pulse Resp BP Pulse Ox O2 Flow Rate 36.8 C 101 H 17 167/97 H 100 05/25/22 17:08 05/25/22 19:50 05/25/22 19:58 05/25/22 19:50 05/25/22 19:50 Height: 5 ft 2 in Weight (kg): 93.44 kg Body Mass Index: 37.6 BMI Classification: Obese - NPO >8 hours - Is Patient ?: No - Lab Results Current Lab Results: Laboratory Tests 05/25/22 17:30: Sodium 137, Potassium 3.1 L, Chloride 103, Carbon Dioxide 24, Anion Gap 10.0, BUN 11, Creatinine 0.7, Estimated GFR (MDRD) 100, Glucose 106 H, Calcium 9.6, Total Bilirubin 0.3, AST 16, ALT 17, Alkaline Phosphatase 77, Total Protein 8.2, Albumin 4.4, Globulin 3.8, Albumin/Globulin Ratio 1.2, Lipase 31 05/25/22 17:30: WBC 15.8 H, RBC 4.45, Hgb 12.2, Hct 37.5, MCV 84.3, MCH 27.4, MCHC 32.5, RDW 13.3, Plt Count 403, MPV 9.6, Neut # (Auto) Not Reportable, Lymph # (Auto) Not Reportable, Power # (Auto) Not Reportable, Eos # (Auto) Not Reportable, Baso # (Auto) Not Reportable, Absolute Nucleated RBC Not Reportable, Total Counted 100, Band Neuts % (Manual) 1, Reactive Lymphs % (Man) 18, Abnorm Lymph % (Manual) 0, Nucleated RBC % Not Reportable, Neutrophils # (Manual) 10.3 H, Lymphocytes # (Manual) 4.7 H, Monocytes # (Manual) 0.6, Eosinophils # (Manual) 0.2, Basophils # (Manual) 0.0, Differential Comment MANUAL DIFFERENTIAL, Platelet Estimate NORMAL (130-450,000), Platelet Morphology NORMAL APPEARANCE, RBC Morph Micro Appear NORMAL APPEARANCE Fish Bones: 05/25/22 17:30 05/25/22 17:30 Home Medications and Allergies Home Medications: Ambulatory Orders Buspirone HCl 7.5 mg PO BID 05/25/22 Escitalopram Oxalate [Lexapro] 20 mg ORAL DAILY 11/24/20 Buspirone HCl 7.5 mg PO BID 05/25/22 Allergies/Adverse Reactions: Allergies Allergy/AdvReac Type Severity Reaction Status Date / Time No Known Drug Allergies Allergy Verified 05/25/22 17:12 Anes History & Medical History - Anesthetic History Anesthesia Complications: reports: No previous complications - Medical History Cardiovascular: reports: None Pulmonary: reports: None Gastrointestinal: reports: None Urinary: reports: None Neuro: reports: None Musculoskeletal: reports: None Endocrine/Autoimmune: reports: Other Blood Disorders: reports: None Skin: reports: None Smoking Status: Current every day smoker - Surgical History Eyes Ears Nose Throat (EENT): reports: Tonsil/Adenoidectomy Exam General: Alert, Oriented x3 Dental: WNL Mouth Opening: Greater than 4 Fingerbreadths Neck Mobility: Normal Mallampati classification: II Thyromental Distance: greater than 6 cm Respiratory: Lungs clear Cardiovascular: Regular rate Plan Anesthesia Type: General Consent for Procedure(s) Verified and Reviewed: Yes Code Status: Attempt Resuscitation ASA classification: 2-Mild systemic disease Is this case an emergency?: Yes
[2022-05-25] MEDS ORDERED: MORPHINE 2 MG/ML CARPUJECT IVP PRN ×2 (20:32→21:21)
[2022-05-25] MEDS ORDERED: ONDANSETRON 4 MG/2 ML VIAL IVP PRN ×3 (20:32→21:57)
[2022-05-25] MEDS ORDERED: ACETAMINOPHEN 1,000 MG/100 ML 1,000 MG/100 ML BAG IV ONE ×2 (20:32→21:00)
[2022-05-25] MEDS ORDERED: ceFAZolin 3 GM in SODIUM CHLORIDE 0.9% 100ML 100 ML IV STA (20:32)
--- NOTE | 2022-05-25 20:36 | HISTORY & PHYSICAL EXAMINATION ---
History and Physical - History and Physical Paper H&P on chart. Abdominal pain for 2 days. Labs, history, exam, CT consistent with acute appendicitis. I personally reviewed images and report from CT from today. It demonstrates appendicitis without free air or fluid, no sign of perforation. Plan for emergent lap appendectomy. Likely home tonight. f/u with me in clinic in 2 weeks.
[2022-05-25] MEDS ORDERED: SODIUM CHLORIDE 0.9% 1,000 ML IV SCH (21:00)
[2022-05-25] MEDS ORDERED: metroNIDAZOLE 500 MG/100 ML 500 MG/100 ML BAG IV ONE (21:00)
[2022-05-25] MEDS ORDERED: ceFAZolin 1 GM VIAL ONE (21:00)
[2022-05-25] MEDS ORDERED: LIDOCAINE MPF 2%-EPI 1:200000 20 ML VIAL SUBQ ONE (21:19)
[2022-05-25] MEDS ORDERED: BUPIVACAINE 0.25% PF 30 ML VIAL SUBQ ONE (21:19)
[2022-05-25] MEDS ORDERED: ATROPINE ABBOJECT 1 MG/10 ML SYRINGE IVP PRN (21:21)
[2022-05-25] MEDS ORDERED: ePHEDrine 50 MG/ML VIAL IVP PRN (21:21)
[2022-05-25] MEDS ORDERED: fentaNYL 100 MCG/2 ML VIAL IVP PRN (21:21)
[2022-05-25] MEDS ORDERED: NALOXONE 0.4 MG/ML VIAL IVP PRN (21:21)
[2022-05-25] MEDS ORDERED: SEVOFLURANE 250 ML LIQUID INH ONE (21:32)
[2022-05-25] MEDS ORDERED: METOPROLOL 5 MG/5 ML VIAL IVP ONE (21:34)
[2022-05-25] MEDS ORDERED: SUGAMMADEX 200 MG/2 ML VIAL IVP ONE (21:51)
--- NOTE | 2022-05-25 21:54 | OPERATIVE REPORT ---
Operative Report - General Procedure Date: 05/25/22 Planned Procedure: laparoscopic appendectomy Pre-Op Diagnosis: Acute appendicitis Procedure Performed: laparoscopic appendectomy Post Op Diagnosis: Acute appendicitis, nonperforated - Procedure Note Primary Surgeon: Dr. Little Wilkinson Anesthesia Provider: Marita Moss CRNA Anesthesia Technique: General ET tube, Local Pathology: Appendix Estimated Blood Loss (mL): 25 Urine Output (mL): 60 Indications: The patient has a 2-day history of right lower quadrant abdominal pain which is acutely worsened. She presented to the emergency department where laboratory studies, physical exam, history, and CT scan are consistent with the diagnosis of acute appendicitis. She was seen and evaluated by myself. We discussed the risks, benefits, and alternatives of laparoscopic appendectomy. Risks include bleeding, infection, damage to surrounding structures, and the need for further surgeries or procedures. We also discussed the intraoperative and postoperative course. The patient voiced understanding, her questions were answered, and she wished to proceed with surgery. A consent was signed by the patient. Findings: 1. Retrocecal appendix 2. Nonperforated appendicitis Complications: None - Other Other Information/Narrative: The patient was brought to the operative suite and placed in the supine position. General endotrachealanesthesia was induced. A Vasquez catheter was placed. Preoperative antibiotics were given. ERAS protocol was not followed due to the patient's pre op nausea. A preop surgical timeout was performed. Local anesthetic was injected into the skin and subcutaneous tissues just superior to the umbilicus. An 11 blade scalpel was used to make a 5 mm transverse skin incision in this location. Next, a hemostat was used to spread the tissues down to the level of the fascia and a Blanca clamp was used to grasp and elevate the umbilical stalk. A Varess needle was used to gain access to the peritoneal space. Low flow insufflation revealed low pressures and then high flow insufflation was undertaken to 15 mmHg. Next, the Varess needle was removed and a 5 mm laparoscopic port was inserted in this location. Through this port, a 5 mm 30 degree laparoscope was inserted. On inspection of the abdomen no injury was caused on entry. Next, the patient was placed in Trendelenburg and rotated slightly to the left. 2 more ports were inserted. A 5 mm port was inserted in the suprapubic region, and a 12 mm port was inserted in the left lower quadrant. Both ports were placed by first anesthetizing the skin and subcutaneous tissues with local anesthetic, then by making an appropriate length incision with an 11 blade scalpel, and finally by placing the port under direct laparoscopic vision. Once the ports were in place, 2 atraumatic graspers were used to identify the area of concern. The appendix was in the retrocecal position. Gentle blunt di ssection was used to take down lateral adhesions of the terminal ileum and cecum and rotate them medially. The appendix was then identified. The appendix was inflamed but there were no signs of perforation. Gentle dissection with the suction tip and atraumatic graspers was used to isolate the appendix from the surrounding tissues. A window was made at the base of the appendix in the mesoappendix using a [place] grasper. Next, a 45 cm laparoscopic stapler with a blue load was used to come across the base of the appendix. Great care was taken to ensure that only the base of the appendix was it within the jaws of the stapler and then it was fired. Next, 2 white loads were used to divide the mesoappendix adjacent to the appendix. 2 areas of bleeding were identified along the staple line from the appendiceal artery. This bleeding was quickly controlled with laparoscopic clips. Hemostasis was confirmed. Suction was used to remove as much fluid as possible from the right lower quadrant. The staple lines were inspected and noted to be hemostatic. Next, the appendix was placed in an Endo Catch bag and removed through the left lower quadrant port. The left lower quadrant port was then reinserted. Again, the staple lines were inspected and noted to be hemostatic. Both ovaries were visualized and appeared to be normal. The gallbladder was also visualized and appeared to be n ormal. Next, a laparoscopic fascial closure device was used to place a single, interrupted 0 Vicryl suture at the left lower quadrant port. This reapproximated the fascia well. The remaining ports were removed under direct laparoscopic vision and the abdomen was deflated. Next, the skin edges were reapproximated with 4-0 Monocryl in an interrupted subcuticular fashion. A sterile dressing of skin glue was placed. The Vasquez catheter was removed at the end of the case. The patient was extubated in the operating room and transferred to the recovery room in stable condition. There were no complications.
[2022-05-25] MEDS ORDERED: HYDROmorphone 0.5 MG/0.5 ML SYRINGE IVP PRN (21:57)
[2022-05-25] MEDS ORDERED: KETOROLAC 30 MG/ML VIAL IVP PRN (21:57)
[2022-05-25] MEDS ORDERED: oxyCODONE 5 MG TABLET PO PRN (21:57)
[2022-05-25] MEDS ORDERED: ACETAMINOPHEN 500 MG TABLET PO PRN (21:57)
[2022-05-25] MEDS ORDERED: LACTATED RINGERS 200 ML IV ONE (22:00)
[2022-05-25] MEDS ORDERED: LACTATED RINGERS 1,000 ML IV SCH (22:00)
[2022-05-25] MEDS ORDERED: oxyCODONE/ACET 5/325 Prepack 4 PO STA ×2 (22:01→22:08)
[2022-05-25] MEDS: HYDROmorphone 0.5 MG/0.5 ML SYRINGE IVP PRN ×2 (22:10→22:35)
[2022-05-25] MEDS ORDERED: HYDROmorphone 1 MG/ML CARPUJECT ONE (22:15)
--- NOTE | 2022-05-25 22:29 | ANESTHESIA POST OP EVALUATION ---
Anesthesia Post Eval - Post Anesthesia Eval Vitals: Last Vital Signs Temp 36.4 C L 05/25/22 22:20 Pulse 96 05/25/22 22:20 Resp 19 05/25/22 22:20 BP 130/82 H 05/25/22 22:20 Pulse Ox 94 05/25/22 22:20 O2 Flow Rate CV Function Including HR & BP: Stable Pain Control: Satisfactory Nausea & Vomiting: Negative Mental Status: Baseline Respiratory Status: Airway Patent Hydration Status: Satisfactory Anesthesia Complications: None
[2022-05-25] MEDS ORDERED: HYDROmorphone 0.5 MG/0.5 ML SYRINGE ONE (22:36)
[2022-05-25] MEDS ORDERED: iohexoL-300 100 ML VIAL IVP ONE (23:11)
[2022-05-26 00:07] VITALS: BP 120/69
== END 2022-05-26 00:47 | disposition home or self-care (01) ==
LOC: ED 17:04 → SDS 20:32 → ICU 22:44 → SDS 05-26 00:47
PROVIDERS: ATTEND Surgery
PROC: 0DTJ4ZZ Resection of Appendix, Percutaneous Endoscopic Approach (ICD-10-PCS; principal; 2022-05-25 21:00)
DX: K35.30 Acute appendicitis with localized peritonitis, without perforation or gangrene (principal); E66.9 Obesity, unspecified; Z68.37 Body mass index [BMI] 37.0-37.9, adult
CPT/HCPCS: 36415; 44970; 74177; 76705; 80053; 81001; 81025; 83690; 85025; 96374; 96375; 96376; 99284; 99285; A9270; J0131; J1170; J3490; J7120; Q9967; 81003; 87086

== ENCOUNTER 2022-07-14 15:28 | Outpatient (CLI) | payer BC ==
[~2022-07-14 15:28] MED LIST: GADOBUTROL 10 MMOL/10 ML VIAL ONE
[2022-07-14] MEDS ORDERED: GADOBUTROL 10 MMOL/10 ML VIAL IVP ONE (16:49)
--- NOTE | 2022-07-15 00:19 | MRI Report ---
PROCEDURE: ABDOMEN W/WO INDICATIONS: LIVER MASS CONTRAST: GADAVIST 9.1 ML TECHNIQUE: Coronal ultra fast SE, axial 2D spoiled GE in- and [id number]; axial breath-hold T2 fast SE. Dynam ic axial ultra fast GE during the administration of contrast; post-contrast coronal ultra fast GE or 2D spoiled GE with fat saturation from the hepatic dome to the iliac crests. Optional diffusion weig hted imaging and ADC may be performed. COMPARISON: Ultrasound and CT 05/25/2022 FINDINGS: Image quality: Excellent. Lung bases and heart: Unremarkable. Liver: Mild hepatomegaly and moderate diffuse signal loss on T1 out of phase imaging. There is a subt le, round T2 isointense to minimally hyperintense 2.0 cm mass in the pericaval right lobe segment 6/7 . Postcontrast there is discontinuous peripheral pooling on the arterial phase with wash-in on the ve nous and delayed phases. Gallbladder and biliary tree: Normal gallbladder and biliary tree. Spleen: No splenomegaly. Pancreas: No pancreatic ductal dilation. Adrenals: No adrenal nodule. Kidneys and ureters: No hydronephrosis. No renal cystic lesion which requires follow up. No solid mas s. Bowel and peritoneum: Stomach and small bowel are normal. The visible loops of colon are within tessa l limits. Lymph nodes: No central or retroperitoneal adenopathy. Vessels: No infrarenal aortic aneurysm. Bones: No aggressive osseous abnormality. Other: No significant ventral hernia. IMPRESSION: 1. 2.0 cm right lobe hepatic mass with MR enhancement characteristics consistent with a hemangioma on a background of moderate hepatic steatosis. Reviewed by: Angelita Jorgensen MD on 07/14/2022 11:18 PM ALEJA Approved by: Angelita Jorgensen MD on 07/14/2022 11:18 PM ALEJA Station ID: [id number]
== END 2022-07-14 15:29 | disposition home or self-care (01) ==
LOC: DI 15:28
PROVIDERS: ATTEND Physician Assistant
DX: R16.0 Hepatomegaly, not elsewhere classified (principal); K76.0 Fatty (change of) liver, not elsewhere classified
CPT/HCPCS: 74183; A9585

== ENCOUNTER 2022-07-21 16:02 | Outpatient (CLI) | payer BC ==
--- NOTE | 2022-07-21 17:31 | Ultrasound Report ---
PROCEDURE: Pelvic w/Transvaginal INDICATIONS: IRREGULAR MENSES TECHNIQUE: Real-time scanning was performed of the pelvic organs, with image documentation. Additional endovagi nal scanning was necessary due to incomplete visualization of the adnexal and endometrial structures by transabdominal scanning. COMPARISON: MRI abdomen 07/14/2022. CT abdomen pelvis 05/25/2022. Pelvic ultrasound 04/21/2020. FINDINGS: Uterus: Uterus is anteverted and normal in size at 9.7 x 4.5 x 3.2 cm. The myometrium is homogeneou s. The endometrium measures 8 mm in combined thickness. No fibroids identified. Ovaries: The right ovary measures 2.9 x 2.1 x 1.5 cm, with a calculated ovarian volume of 5 cc. The left ovary measures 3.7 x 2.2 x 2.2 cm, with a calculated ovarian volume of 9 cc. The ovaries have a normal sonographic appearance. Less than 12 follicles can be seen in each ovary. Left ovarian cren ulated cyst measuring 1.4 x 1.4 x 1.3 cm. Other: No pathologic free abdominal or pelvic fluid. IMPRESSION: 1. Crenulated left ovarian cyst measuring 1.4 cm. This most likely represents a hemorrhagic or resolv ing cyst. 2. Endometrium measures 8 mm. Reviewed by: Flako Florence MD on 07/21/2022 5:30 PM PDT Approved by: Flako Florence MD on 07/21/2022 5:30 PM PDT Station ID: [id number]
== END 2022-07-21 16:03 | disposition home or self-care (01) ==
LOC: DI 16:02
PROVIDERS: ATTEND Physician Assistant
DX: N83.292 Other ovarian cyst, left side (principal)

== ENCOUNTER 2023-10-04 16:45 | Emergency (ER) | payer BC ==
[2023-10-04 16:56] VITALS: BP 165/106; O2SAT 98
--- NOTE | 2023-10-04 17:03 | ED Physician Documentation ---
PD HPI HEENT - Stated complaint Stated Complaint: RT SIDE NECK/SHOULDER PX - Chief complaint Chief Complaint: Heent - History obtained from History obtained from: Patient - Additional information Additional information: Otherwise healthy 28-year-old awoke this morning with right-sided neck pain and inability to turn her head. There was no injury. 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: Other : None HEENT: None Psych: Anxiety Musculoskeletal: None Derm: None - Past Surgical History Past Surgical History: Yes HEENT: Tonsil/Adenoidectomy - Present Medications Home Medications: Ambulatory Orders Medication Instructions Recorded Confirmed Escitalopram Oxalate [Lexapro] 20 mg ORAL DAILY 11/24/20 05/25/22 Buspirone HCl 7.5 mg PO BID 05/25/22 05/25/22 oxyCODONE [Roxicodone] 5 mg PO Q4H PRN #15 tablet 05/25/22 polyethylene glycoL 3350(BULK) 17 gm PO DAILY #238 gm 05/25/22 [Miralax] Cyclobenzaprine [Flexeril] 10 mg PO TID PRN #20 tablet 10/04/23 HYDROcod/ACETAM 5/325 [[place] 5/325] 1 - 2 tab PO Q6H PRN #15 tablet 10/04/23 - Allergies Allergies/Adverse Reactions: Allergies Allergy/AdvReac Type Severity Reaction Status Date / Time nifedipine AdvReac Rash Verified 10/04/23 17:02 - Social History Does the pt smoke?: Yes Smoking Status: Current every day smoker Does the pt drink ETOH?: Yes Does the pt have substance abuse?: Yes - Immunizations Immunizations are current?: Yes - POLST Patient has POLST: No PD ED PE NORMAL - Vitals Vital signs reviewed: Yes - General General: Alert and oriented X 3, No acute distress - HEENT HEENT: PERRL, EOMI - Neck Neck: Other (Diffusely tender over the right sternocleidomastoid and can flex and extend the neck a bit but cannot rotate to the right at all. No adenopathy.) - Derm Derm: Normal color, Warm and dry - Extremities Extremities: Other (Normal upper extremity medicare nurse strength, thumb extension, interosseous strength, and sensation throughout the upper extremities.) - Neuro Neuro: Alert and oriented X 3, Normal speech Results - Vitals Vitals: Vital Signs - 24 hr 10/04/23 16:46 Temperature 36.7 C Heart Rate 108 H Respiratory 15 Rate Blood Pressure 165/106 H O2 Saturation 98 Oxygen O2 Source Room air PD Medical Decision Making - ED course ED course: She presents with fairly classic torticollis/sternocleidomastoid spasm. Departure - Departure Disposition: 01 Home, Self Care Clinical Impression: Torticollis Condition: Good Record reviewed to determine appropriate education?: Yes Instructions: Torticollis Prescriptions: Cyclobenzaprine [Flexeril] 10 mg PO TID PRN #20 tablet PRN Reason: Spasms HYDROcod/ACETAM 5/325 [[place] 5/325] 1 - 2 tab PO Q6H PRN #15 tablet PRN Reason: Pain Comments: I sent your prescriptions electronically to the [facility] in [place]. You were seen today for neck spasm known as torticollis, do heat and gentle stretching it should be gone over the next few days. Return for new or worsening symptoms. I am prescribing a short course of narcotic pain medication for you. These are potentially dangerous and addictive medications that should be used carefully. These medications may constipate you. Take an vmvj-chx-jrhalhd stool softener (docusate) twice daily with plenty of water while taking these medications. If you go 24 hours without a bowel movement, take [id number] miralax, per package instructions. Do not drink or drive while taking these medications. If you received narcotic or sedating medications while in the emergency department, do not drive for 24 hours. Store this medication in a safe, secure place and out of reach of children. It is a violation of federal law to give or sell this medication to another person or to use in a manner other than prescribed. The ED will not refill narcotic prescriptions, including prescriptions lost or stolen. To dispose of unwanted medications: 1. [facility] provides a drop box for medication in pill form only (no liquids) 8:00 am to 4:30 p.m. Monday-Monday in the lobby of the [facility], [address] [place] [address]. Empty pills into ziplock bag before disposal. Call [phone] for information. 2.[employer] is a free service available to all [facility] residents. Go to [email or web address] Note that many narcotic pain relievers also contain Tylenol/acetaminophen. Please ensure that your total dose of acetaminophen from all sources does not exceed 3 g (3000 mg) per day. Forms: PCP List, Activity restrictions
[2023-10-04] MEDS: CYCLOBENZAPRINE 10 MG TABLET PO STA (17:10)
[2023-10-04] MEDS: HYDROcod/ACETAM 5/325 MG TABLET PO STA (17:10)
== END 2023-10-04 17:16 | disposition home or self-care (01) ==
LOC: ED 16:45
DX: M43.6 Torticollis (principal); F17.200 Nicotine dependence, unspecified, uncomplicated; Z79.899 Other long term (current) drug therapy
CPT/HCPCS: 99283; A9270

== ENCOUNTER 2025-02-07 22:13 | Observation (INO) ==
--- OUTSIDE RECORDS SUMMARY | 2025-02-07 22:17 | EXTERNAL MEDICAL SUMMARY RPT | Continuity of Care Document ---
Author Organization [facility] Address [address] [place] [id number] Phone Allergies and Intolerances date description facility reaction severity 2024-09-16 10:00 [id number]^nifedipine^ ^nifedipine^^allergy.i d [facility] Rash, FLUSHING, RASH (no severity) 2024-10-08 10:00 [id number]^nifedipine^ ^nifedipine^^[facility]ergy.i d [facility] Rash, FLUSHING, RASH (no severity) 2024-10-31 10:00 [id number]^nifedipine^ ^nifedipine^^allergy.i d [facility] Rash, FLUSHING, RASH (no severity) 2024-11-18 10:00 [id number]^nifedipine^ ^nifedipine^^[facility].i d [facility] Rash, FLUSHING, RASH (no severity) 2024-12-02 10:00 [id number]^nifedipine^ ^nifedipine^^[facility]ergy.i d [facility] Rash, FLUSHING, RASH (no severity) 2025-01-01 10:00 [id number]^nifedipine^ ^nifedipine^^allergy.i d [facility] Rash, FLUSHING, RASH (no severity) 2025-01-30 10:00 [id number]^nifedipine^ ^nifedipine^^[facility].i [facility] Rash, FLUSHING, RASH (no severity) 2025-02-05 10:00 [id number]^nifedipine^ ^nifedipine^^[facility] d [facility], [facility]USH[facility], RASH (no severity) Problems date description facility 2024-11-19 00:01 Type 2 diabetes mellitus with h yperglycemia [facility] 2024-11-19 00:01 [facility] 10:56 Type 2 diabetes [facility] withou t complications [facility] 2024-12-02 10:57 Type 2 diabetes mellitus withou t complications [facility]24-[facility]-02 11:26 Type 2 diabetes mellitus withou t complications [facility] 2024-12-02 11:26 Supervision of high risk , unspecified, second trimester [facility] 2024-12-02 11:[address] [facility] 2024-12-03 08:47 Type 2 diabetes mellitus withou t complications [facility] 2024-12-03 08:47 Supervision of high risk , unspecified, second trimester [facility] 2024-12-06 06:16 Gestational diabetes mellitus in , diet controlled [facility] 2024-12-06 13:57 Type 2 diabetes mellitus withou t complications [facility] 2024-12-06 13:57 Supervision of high risk , unspecified, second trimester [facility] 2024-12-06 13:57 Pre-existing type 2 diabetes mellitus, in , second trimester [facility] 2024-12-06 13:[address] [facility] [employer] [facility] 2024-12-10 11:10 Type 2 diabetes mellitus withou t complications [facility] 2024-12-10 11:10 Supervision of high risk , unspecified, second trimester [facility] 2024-12-10 11:11 Type 2 diabetes mellitus withou t complications [facility] 2024-12-10 11:11 Supervision of high risk , unspecified, second trimester [facility] 2024-12-12 12:19 Type 2 diabetes mellitus withou t complications [facility] 2024-12-12 12:19 Supervision of high risk , unspecified, second trimester [facility] 2024-12-31 08:45 Type 2 diabetes mellitus withou t complications [facility] 2024-12-31 08:45 Supervision of high risk , unspecified, second trimester [facility] 2025-01-01 00:02 Type 2 diabetes mellitus withou t complications [facility] 2025-01-01 00:02 Supervision of high risk , unspecified, second trimester [facility] 2025-01-01 11:34 Type 2 diabetes mellitus withou t complications [facility] 2025-01-01 11:34 Supervision of high risk , unspecified, second trimester [facility] 2025-01-01 12:48 Supervision of high risk , unspecified, second trimester [facility] 2025-01-01 14:10 Supervision of high risk , unspecified, second trimester [facility] 2025-01-01 14:10 Encounter for superv ision of normal , unspecified, unspecified trimester [facility] 2025-01-02 00:04 Supervision of high risk , unspecified, second trimester [facility] 2025-01-02 00:04 Encounter for superv ision of normal , unspecified, unspecified trimester [facility] 2025-01-02 07:28 Supervision of high risk , unspecified, second trimester [facility] 2025-01-02 12:57 Supervision of high risk , unspecified, second trimester [facility] 2025-01-02 12:57 Unspecified diabetes mellitus in , second trimester [facility] 2025-01-10 08:33 Type 2 diabetes mellitus withou t complications [facility] 2025-01-10 08:33 Essential (primary) hypertensio n [facility] 2025-01-10 08:33 Supervision of high risk , unspecified, second trimester [facility] 2025-01-15 15:21 Gestational diabetes mellitus in , diet controlled [facility] 2025-01-16 15:24 Gestational diabetes mellitus in , diet controlled [facility] 2025-01-30 13:49 Supervision of high risk , unspecified, second trimester [facility] 2025-01-30 14:26 Type 2 diabetes mellitus withou t complications [facility] 2025-01-30 14:26 Polycystic ovarian syndrome [facility] 2025-01-30 14:26 Supervision of high risk , unspecified, second trimester [facility] 2025-01-30 14:26 Unspecified pre-exis ting hypertension complicating , unspecified trimester [facility] 2025-01-31 00:04 Supervision of high risk , unspecified, second trimester [facility] 2025-02-03 11:48 Type 2 diabetes mellitus withou t complications [facility] 2025-02-03 11:48 Polycystic ovarian syndrome [facility] 2025-02-03 11:48 Supervision of high risk , unspecified, second trimester [facility] 2025-02-03 11:48 Unspecified pre-exis ting hypertension complicating , unspecified trimester [facility] 2025-02-03 11:48 Pre-existing type 2 diabetes mellitus, in , second trimester [facility] 2025-02-03 11:49 Type 2 diabetes mellitus withou t complications [facility] 2025-02-03 11:49 Polycystic ovarian syndrome [facility] 2025-02-03 11:49 Supervision of high risk , unspecified, second trimester [facility] 2025-02-03 11:49 Pre-existing essenti al hypertension complicating , second trimester [facility] 2025-02-03 11:49 Unspecified pre-exis ting hypertension complicating , unspecified trimester [facility] 2025-02-03 11:49 Pre-existing type 2 diabetes mellitus, in , second trimester [facility] 2025-02-03 11:49 25 weeks gestation of [facility] 2025-02-04 07:37 Gestational diabetes mellitus in , diet controlled [facility] 2025-02-04 07:40 Gestational diabetes mellitus in , diet controlled [facility] 2025-02-05 12:28 Nausea [facility] 2025-02-05 12:37 Nausea [facility] Results/Labs test date facility value unit notes Result panel 1 TEST RESULTS 2025-01-01 14:15 [facility] *Screen Negative* (missing) (missing) AFP MOM 2025-01-01 14:15 [facility] 1.52 (missing) (missing) HGB - HEMOGLOBIN 2025-01-01 14:15 [facility] 11.4 g/dl (missing) RED CELL DISTRIBUTION WIDTH 2025-01-01 14:15 [facility] 13.1 % (missing) WHITE BLOOD COUNT 2025-01-01 14:15 [facility] 14.7 x10 3/ul (missing) WEIGHT 2025-01-01 14:15 [facility] 186 lbs (missing) GEST. AGE ON COLLECTION DATE 2025-01-01 14:15 [facility] 21.1 weeks (missing) OPEN SPINA BIFIDA RISK 1 IN 2025-01-01 14:15 [facility] 2591 (missing) (missing) MEAN CORPUSCULAR HEMOGLOBIN 2025-01-01 14:15 [facility] 27.3 pg (missing) MATERNAL AGE AT ROGELIO 2025-01-01 14:15 [facility] 30.9 yr (missing) MEAN CORPUSCULAR HGB CONC 2025-01-01 14:15 [facility] 31.9 g/dl (missing) PLT - PLATELET COUNT 2025-01-01 14:15 [facility] 333 10 3/ul (missing) HCT - HEMATOCRIT 2025-01-01 14:15 [facility] 35.7 % (missing) RED BLOOD COUNT 2025-01-01 14:15 [facility] 4.17 10 6/ul (missing) MEAN CORPUSCULAR VOLUME 2025-01-01 14:15 [facility] 85.6 fl (missing) AFP VALUE 2025-01-01 14:15 [facility] 85.8 ng/ml (missing) MEAN PLATELET VOLUME 2025-01-01 14:15 [facility] 9.9 fl (missing) RACE 2025-01-01 14:15 [facility] (missing) (missing) INTERPRETATION 2025-01-01 14:15 [facility] Comment (missing) Interpretation: Screen Negative This result is screen negative for OSB. The AFP MoM calculated is based on the gestational age provided. MS-AFP can identify up to 80% of open neural tube defects. Closed neural tube defects and some open defects may not be detected by this test. This test does not screen for Down Syndrome or Trisomy 18. If screening for Down Syndrome or Trisomy 18 is desired, contact [facility] to discuss available options. The [place] [employer] recommends amniocentesis be offered to women age 35 and older. COMMENTS 2025-01-01 14:15 [facility] Comment (missing) Wendy Vizcarra, Ph.D., [facility] Director References: Available Upon Request. Multiples Of Median Cutoffs For AFP Elevations Leyva 2.5 Black 2.8 IDD 2.0 Twins 4.5 Abbreviation Definitions IDD - Insulin Dep Diabetes OSBR - Open Spina Bifida Risk For further inquiries contact [facility] at [phone]. This test was developed and its performance characteristics determined by [facility]. It has not been cleared or approved by the Food and Drug Administration. Performed at: [facility] [address] [place], [place] [id number] Match Up Person: [facility], Phone: [phone] INSULIN DEP DIABETES 2025-01-01 14:15 [facility] No (missing) (missing) MULTIPLE GESTATION 2025-01-01 14:15 [facility] No (missing) (missing) RPR 2025-01-01 14:15 [facility] Non Reactive (missing) Performed at: [address], [place], [place] [id number] Match Up Person: Mahendra Rice MD, Phone: [phone] RESULTS 2025-01-01 14:15 [facility] Report (missing) N [id number] N ULTRASOUND 21.1 [id number] 1 21 N 1 N 186 N N N N N GESTAT. AGE METHOD 2025-01-01 14:15 [facility] Ultrasound (missing) 21.1 on 01/01/2025 Recalculations are not recommended when gestational dating by LMP and ultrasound are within 10 days. Result panel 2 PROTEIN/CREATININE RATIO,URINE 2025-01-30 13:54 [facility] 0.1 (missing) (missing) CREATININE,URINE 2025-01-30 13:54 [facility] 65.2 mg/dl As of August 2022 testing method has changed, this may include reference ranges. TOTAL PROTEIN,URINE TIMED 2025-01-30 13:54 [facility] 7 mg/dl As of August 2022 testing method has changed, this may include reference ranges. Result panel 3 BILIRUBIN,TOTAL 2025-01-30 13:57 [facility] 0.2 mg/dl As of August 2022 testing method has changed, this may include reference ranges. CREATININE 2025-01-30 13:57 [facility] 0.5 mg/dl As of August 2022 testing method has changed, this may include reference ranges. ALBUMIN/GLOBULIN RATIO 2025-01-30 13:57 [facility] 1.3 (missing) (missing) MEAN PLATELET VOLUME 2025-01-30 13:57 [facility] 10.0 fl (missing) CHLORIDE 2025-01-30 13:57 [facility] 101 mmol/l As of August 2022 testing method has changed, this may include reference ranges. HGB - HEMOGLOBIN 2025-01-30 13:57 [facility] 11.6 g/dl (missing) VITAMIN B12 2025-01-30 13:57 [facility] 119 pg/ml VITAMIN B12 RANGES: NORMAL 180 - 914 INDETERMINATE 145 -180 DEFICIENT < 145 RED CELL DISTRIBUTION WIDTH 2025-01-30 13:57 [facility] 13.2 % (missing) GLUCOSE 2025-01-30 13:57 [facility] 134 mg/dl As of August 2022 testing method has changed, this may include reference ranges. SODIUM 2025-01-30 13:57 [facility] 135 mmol/l (missing) WHITE BLOOD COUNT 2025-01-30 13:57 [facility] 14.3 x10 3/ul (missing) GFR - MDRD 2025-01-30 13:57 [facility] 145 (missing) The IDMS-traceable MDRD Study Equation has been validated extensively in and populations between the ages of 18 and 70 with impaired kidney function (eGFR < 60 mL/min/1.73m2) and has shown good performance for patients with all common causes of kidney disease. Although this equation has not been validated for patients older than 70, an MDRD-derived eGFR may still be a useful tool for providers caring for patients older than 70. References: http://www.nkdep.ni h.gov/lab-evaluatio n/gfr/creatinine-st and ardization, last updated April 2011. FERRITIN 2025-01-30 13:57 [facility] 18.1 ng/ml (missing) VITAMIN D 25-HYDROXY 2025-01-30 13:57 [facility] 19.6 ng/ml Vitamin D deficiency has been defined by the [place] of [employer] and an Endocrine Society practice guideline as a level of serum 25-OH vitamin D less than 20 ng/mL (1,2). The Endocrine Society went on to further define vitamin D insufficiency as a level between 21 and 29 ng/mL (2). 1. IOM ([place] of Medicine). 2010. Dietary reference intakes for calcium and D. [place]: The National Academies Press. 2. Rick MF, Inez BERNAL, Veronica MCKEON, et al. Evaluation, treatment, and prevention of vitamin D deficiency: an Endocrine Society clinical practice guideline. JCEM. 2010; 96(7):1911-30. Performed at: [facility] [place] [address], [address], [place], [place] [id number] Match Up Person: Mahendra Rice MD, Phone: [phone] CARBON DIOXIDE - CO2 2025-01-30 13:57 [facility] 25 mmol/l As of August 2022 testing method has changed, this may include reference ranges. MEAN CORPUSCULAR HEMOGLOBIN 2025-01-30 13:57 [facility] 27.8 pg (missing) GLOBULIN 2025-01-30 13:57 [facility] 3.0 g/dl (missing) POTASSIUM 2025-01-30 13:57 [facility] 3.5 mmol/l As of August 2022 testing method has changed, this may include reference ranges. MEAN CORPUSCULAR HGB CONC 2025-01-30 13:57 [facility] 32.4 g/dl (missing) HCT - HEMATOCRIT 2025-01-30 13:57 [facility] 35.8 % (missing) PLT - PLATELET COUNT 2025-01-30 13:57 [facility] 372 10 3/ul (missing) ALBUMIN 2025-01-30 13:57 [facility] 4.0 g/dl As of August 2022 testing method has changed, this may include reference ranges. RED BLOOD COUNT 2025-01-30 13:57 [facility] 4.18 10 6/ul (missing) ALKALINE PHOSPHATASE 2025-01-30 13:57 [facility] 63 iu/l As of August 2022 testing method has changed, this may include reference ranges. TOTAL PROTEIN 2025-01-30 13:57 [facility] 7.0 g/dl As of August 2022 testing method has changed, this may include reference ranges. ALT ALANINE AMINOTRANSFERASE 2025-01-30 13:57 [facility] 8 iu/l As of August 2022 testing method has changed, this may include reference ranges. MEAN CORPUSCULAR VOLUME 2025-01-30 13:57 [facility] 85.6 fl (missing) AST ASPARTATE AMINOTRANSFERASE 2025-01-30 13:57 [facility] 9 iu/l As of August 2022 testing method has changed, this may include reference ranges. BUN - BLOOD UREA NITROGEN 2025-01-30 13:57 [facility] 9 mg/dl As of August 2022 testing method has changed, this may include reference ranges. ANION GAP 2025-01-30 13:57 [facility] 9.0 (missing) (missing) CALCIUM 2025-01-30 13:57 [facility] 9.7 mg/dl As of August 2022 testing method has changed, this may include reference ranges. Result panel 4 TOTAL PROTEIN,URINE TIMED 2025-02-02 15:35 [facility] < 4 mg/dl As of Aug testing method has changed, this may include reference ranges. CREATININE,URINE 2025-02-02 15:35 [facility] 32.0 m g/dl As of August 2022 testing method has changed, this may include reference ranges. PROTEIN/CREATININE RATIO,URINE 2025-02-02 15:35 [facility] TNP (missing) Unable to calculate. Analyte below the measurable range. Result panel 5 NUCLEATED RED BLOOD CELLS AUTO 2025-02-02 15:39 [facility] 0.0 /100wbc (missing) NRBC ABSOLUTE COUNT (AUTO) 2025-02-02 15:39 [facility] 0.00 x10 3/ul (missing) BASOPHILS # (AUTO) 2025-02-02 15:39 [facility] 0.1 10 3/ul (missing) EOSINOPHILS # (AUTO) 2025-02-02 15:39 [facility] 0.2 10 3/ul (missing) BILIRUBIN,TOTAL 2025-02-02 15:39 [facility] 0.2 mg/dl As of August 2022 testing method has changed, this may include reference ranges. CREATININE 2025-02-02 15:39 [facility] 0.5 mg/dl As of August 2022 testing method has changed, this may include reference ranges. MONOCYTES # (AUTO) 2025-02-02 15:39 [facility] 0.8 10 3/ul (missing) ALBUMIN/GLOBULIN RATIO 2025-02-02 15:39 [facility] 1.5 (missing) (missing) ANION GAP 2025-02-02 15:39 [facility] 10.0 (missing) (missing) CALCIUM 2025-02-02 15:39 [facility] 10.1 mg/dl As of August 2022 testing method has changed, this may include reference ranges. MEAN PLATELET VOLUME 2025-02-02 15:39 [facility] 10.2 fl (missing) CHLORIDE 2025-02-02 15:39 [facility] 104 mmol/l As of August 2022 testing method has changed, this may include reference ranges. BUN - BLOOD UREA NITROGEN 2025-02-02 15:39 [facility] 11 mg/dl As of August 2022 testing method has changed, this may include reference ranges. NEUTROPHILS # (AUTO) 2025-02-02 15:39 [facility] 11.4 10 3/ul (missing) HGB - HEMOGLOBIN 2025-02-02 15:39 [facility] 12.0 g/dl (missing) GLUCOSE 2025-02-02 15:39 [facility] 122 mg/dl As of August 2022 testing method has changed, this may include reference ranges. RED CELL DISTRIBUTION WIDTH 2025-02-02 15:39 [facility] 13.4 % (missing) SODIUM 2025-02-02 15:39 [facility] 135 mmol/l (missing) GFR - MDRD 2025-02-02 15:39 [facility] 145 (missing) The IDMS-traceable MDRD Study Equation has been validated extensively in and populations between the ages of 18 and 70 with impaired kidney function (eGFR < 60 mL/min/1.73m2) and has shown good performance for patients with all common causes of kidney disease. Although this equation has not been validated for patients older than 70, an MDRD-derived eGFR may still be a useful tool for providers caring for patients older than 70. References: http://www.nkdep. nih.gov/lab-evalu ation/gfr/creatin ine-stand ardization, last updated April 2011. WHITE BLOOD COUNT 2025-02-02 15:39 [facility] 16.5 x10 3/ul (missing) GLOBULIN 2025-02-02 15:39 [facility] 2.7 g/dl (missing) CARBON DIOXIDE - CO2 2025-02-02 15:39 [facility] 21 mmol/l As of August 2022 testing method has changed, this may include reference ranges. MEAN CORPUSCULAR HEMOGLOBIN 2025-02-02 15:39 [facility] 27.5 pg (missing) POTASSIUM 2025-02-02 15:39 [facility] 3.8 mmol/l As of August 2022 testing method has changed, this may include reference ranges. MEAN CORPUSCULAR HGB CONC 2025-02-02 15:39 [facility] 32.2 g/dl (missing) HCT - HEMATOCRIT 2025-02-02 15:39 [facility] 37.3 % (missing) PLT - PLATELET COUNT 2025-02-02 15:39 [facility] 396 10 3/ul (missing) LYMPHOCYTES # (AUTO) 2025-02-02 15:39 [facility] 4.0 10 3/ul (missing) ALBUMIN 2025-02-02 15:39 [facility] 4.0 g/dl As of August 2022 testing method has changed, this may include reference ranges. RED BLOOD COUNT 2025-02-02 15:39 [facility] 4.36 10 6/ul (missing) ALKALINE PHOSPHATASE 2025-02-02 15:39 [facility] 58 iu/l As of August 2022 testing method has changed, this may include reference ranges. TOTAL PROTEIN 2025-02-02 15:39 [facility] 6.7 g/dl As of August 2022 testing method has changed, this may include reference ranges. AST ASPARTATE AMINOTRANSFERASE 2025-02-02 15:39 [facility] 8 iu/l As of August 2022 testing method has changed, this may include reference ranges. ALT ALANINE AMINOTRANSFERASE 2025-02-02 15:39 [facility] 8 iu/l As of August 2022 testing method has changed, this may include reference ranges. MEAN CORPUSCULAR VOLUME 2025-02-02 15:39 [facility] 85.6 fl (missing) Result panel 6 WBC,URINE 2025-02-05 09:40 [facility] 0-3 /hpf (missing) UROBILINOGEN,URINE 2025-02-05 09:40 [facility] 0.2 (NORMAL) e.u./dl (missing) SPECIFIC GRAVITY,URINE 2025-02-05 09:40 [facility] 1.010 (missing ) (missing) PH,URINE 2025-02-05 09:40 [facility] 5.5 ph (missing) CLARITY,URINE 2025-02-05 09:40 [facility] CLEAR (missing ) (missing) LEUKOCYTE ESTERASE, URINE 2025-02-05 09:40 [facility] NEGATIVE (missing ) (missing) NITRITE,URINE 2025-02-05 09:40 [facility] NEGATIVE (missing ) (missing) OCCULT BLOOD,URINE 2025-02-05 09:40 [facility] NEGATIVE (missing ) (missing) BILIRUBIN,URINE 2025-02-05 09:40 [facility] NEGATIVE (missing ) Bilirubin can be influenced by color interference. Please correlate positive results with clinical presentation GLUCOSE, URINE (UA) 2025-02-05 09:40 [facility] NEGATIVE mg/dl (missing) KETONES,URINE (UA) 2025-02-05 09:40 [facility] NEGATIVE mg/dl (missing) PROTEIN,URINE 2025-02-05 09:40 [facility] NEGATIVE mg/dl (missing) SARS-CoV-2 -RESP PCR PANEL 2025-02-05 09:40 [facility] NOT DETECTED (missing ) A negative test result for this test indicates that SARS-CoV-2 RNA was not present in the specimen above the limit of detection. Testing performed on the [employer] RP2.1 Panel, a multiplexed nucleic acid repiratory panel. Negative results do not preclude infection with SARS-CoV-2 virus and should not be the sole basis of a patient management decision. In some patients repeat testing at various time points may be necessary for virus detection. False-negative results may arise from improper sample collection, degradation of viral RNA during shipping or storage, the presence of PCR inhibitors, and/or mutation in the SARS-CoV-2 virus. INFLUENZA A- RESP PCR PANEL 2025-02-05 09:40 [facility] NOT DETECTED (missing ) Influenza A including subtypes H1, H3, and H1-2009 not detected by the [employer] RP2.1 Panel, a multiplexed nucleic acid test intended for the simultaneous qualitative detection and differentiation of nucleic acids from multiple viral and bacterial respiratory organisms. ADENOVIRUS - RESP PCR PANEL 2025-02-05 09:40 [facility] NOT DETECTED (missing ) NO Negative results in the setting ofa respiratory illness may be due to infection with pathogens not detected by this test, or lower respiratory tract infection that may not be detected by nasopharyngeal specimen. B. PARAPERTUSSIS- RESP PCR AGUIAR 2025-02-05 09:40 [facility] NOT DETECTED (missing ) Negative results for this organism do not preclude infection with this organism and may require additional laboratory testing (e.g., bacterial and viral culture, immunofluorescence, and radiography) when evaluating a patient with possible respiratory tract infection. B. PERTUSSIS- RESP PCR PANEL 2025-02-05 09:40 [facility] NOT DETECTED (missing ) Negative results for this organism do not preclude infection with this organism and may require additional laboratory testing (e.g., bacterial and viral culture, immunofluorescence, and radiography) when evaluating a patient with possible respiratory tract infection. C. PNEUMONIAE- RESP PCR PANEL 2025-02-05 09:40 [facility] NOT DETECTED (missing ) Negative results for this organism do not preclude infection with this organism and may require additional laboratory testing (e.g., bacterial and viral culture, immunofluorescence, and radiography) when evaluating a patient with possible respiratory tract infection. M. PNEUMONIAE- RESP PCR PANEL 2025-02-05 09:40 [facility] NOT DETECTED (missing ) Negative results for this organism do not preclude infection with this organism and may require additional laboratory testing (e.g., bacterial and viral culture, immunofluorescence, and radiography) when evaluating a patient with possible respiratory tract infection. CORONAVIRUS 229E-RESP PCR 2025-02-05 09:40 [facility] NOT DETECTED (missing ) Negative results in the setting ofa respiratory illness may be due to infection with pathogens not detected by this test, or lower respiratory tract infection that may not be detected by nasopharyngeal specimen. CORONAVIRUS HKU1-RESP PCR 2025-02-05 09:40 [facility] NOT DETECTED (missing ) Negative results in the setting ofa respiratory illness may be due to infection with pathogens not detected by this test, or lower respiratory tract infection that may not be detected by nasopharyngeal specimen. CORONAVIRUS SH41-GOVZ PCR 2025-02-05 09:40 [facility] NOT DETECTED (missing ) Negative results in the setting ofa respiratory illness may be due to infection with pathogens not detected by this test, or lower respiratory tract infection that may not be detected by nasopharyngeal specimen. CORONAVIRUS GU41-YYQN PCR 2025-02-05 09:40 [facility] NOT DETECTED (missing ) Negative results in the setting ofa respiratory illness may be due to infection with pathogens not detected by this test, or lower respiratory tract infection that may not be detected by nasopharyngeal specimen. HUMAN METAPNEUMOVIRUS 2025-02-05 09:40 [facility] NOT DETECTED (missing ) Negative results in the setting ofa respiratory illness may be due to infection with pathogens not detected by this test, or lower respiratory tract infection that may not be detected by nasopharyngeal specimen. INFLUENZA B - RESP PCR PANEL 2025-02-05 09:40 [facility] NOT DETECTED (missing ) Negative results in the setting ofa respiratory illness may be due to infection with pathogens not detected by this test, or lower respiratory tract infection that may not be detected by nasopharyngeal specimen. PARAINFLUENZA VIRUS 1 2025-02-05 09:40 [facility] NOT DETECTED (missing ) Negative results in the setting ofa respiratory illness may be due to infection with pathogens not detected by this test, or lower respiratory tract infection that may not be detected by nasopharyngeal specimen. PARAINFLUENZA VIRUS 2 2025-02-05 09:40 [facility] NOT DETECTED (missing ) Negative results in the setting ofa respiratory illness may be due to infection with pathogens not detected by this test, or lower respiratory tract infection that may not be detected by nasopharyngeal specimen. PARAINFLUENZA VIRUS 3 2025-02-05 09:40 [facility] NOT DETECTED (missing ) Negative results in the setting ofa respiratory illness may be due to infection with pathogens not detected by this test, or lower respiratory tract infection that may not be detected by nasopharyngeal specimen. PARAINFLUENZA VIRUS 4 2025-02-05 09:40 [facility] NOT DETECTED (missing ) Negative results in the setting ofa respiratory illness may be due to infection with pathogens not detected by this test, or lower respiratory tract infection that may not be detected by nasopharyngeal specimen. RHINOVIRUS/ENTEROVIR US 2025-02-05 09:40 [facility] NOT DETECTED (missing ) Negative results in the setting ofa respiratory illness may be due to infection with pathogens not detected by this test, or lower respiratory tract infection that may not be detected by nasopharyngeal specimen. RSV- RESP PCR PANEL 2025-02-05 09:40 [facility] NOT DETECTED (missing ) Negative results in the setting ofa respiratory illness may be due to infection with pathogens not detected by this test, or lower respiratory tract infection that may not be detected by nasopharyngeal specimen. UR CULTURE IF IND 2025-02-05 09:40 [facility] NOT INDICATED (missing ) (missing) RBC,URINE 2025-02-05 09:40 [facility] None Seen /hpf (missing) SQUAMOUS EPITHELIAL CELL,UR 2025-02-05 09:40 [facility] RARE Squamous (missing ) (missing) BACTERIA,URINE 2025-02-05 09:40 [facility] Rare /hpf (missing) COLOR,URINE 2025-02-05 09:40 [facility] YELLOW (missing ) URINE CLEAN CATCH Result panel 7 NUCLEATED RED BLOOD CELLS AUTO 2025-02-05 09:50 [facility] 0.0 /100wbc (missing) BASOPHILS # (AUTO) 2025-02-05 09:50 [facility] 0.0 10 3/ul (missing) NRBC ABSOLUTE COUNT (AUTO) 2025-02-05 09:50 [facility] 0.00 x10 3/ul (missing) EOSINOPHILS # (AUTO) 2025-02-05 09:50 [facility] 0.1 10 3/ul (missing) BILIRUBIN,TOTAL 2025-02-05 09:50 [facility] 0.2 mg/dl As of August 2022 testing method has changed, this may include reference ranges. MONOCYTES # (AUTO) 2025-02-05 09:50 [facility] 0.5 10 3/ul (missing) CREATININE 2025-02-05 09:50 [facility] 0.5 mg/dl As of August 2022 testing method has changed, this may include reference ranges. ALBUMIN/GLOBULIN RATIO 2025-02-05 09:50 [facility] 1.6 (missing) (missing) ANION GAP 2025-02-05 09:50 [facility] 10.0 (missing) (missing) MEAN PLATELET VOLUME 2025-02-05 09:50 [facility] 10.3 fl (missing) CHLORIDE 2025-02-05 09:50 [facility] 104 mmol/l As of August 2022 testing method has changed, this may include reference ranges. HGB - HEMOGLOBIN 2025-02-05 09:50 [facility] 11.7 g/dl (missing) WHITE BLOOD COUNT 2025-02-05 09:50 [facility] 13.0 x10 3/ul (missing) RED CELL DISTRIBUTION WIDTH 2025-02-05 09:50 [facility] 13.6 % (missing) SODIUM 2025-02-05 09:50 [facility] 135 mmol/l (missing) GFR - MDRD 2025-02-05 09:50 [facility] 145 (missing) The IDMS-traceable MDRD Study Equation has been validated extensively in and populations between the ages of 18 and 70 with impaired kidney function (eGFR < 60 mL/min/1.73m2) and has shown good performance for patients with all common causes of kidney disease. Although this equation has not been validated for patients older than 70, an MDRD-derived eGFR may still be a useful tool for providers caring for patients older than 70. References: http://www.nkdep. nih.gov/lab-evalu ation/gfr/creatin ine-stand ardization, last updated April 2011. GLOBULIN 2025-02-05 09:50 [facility] 2.7 g/dl (missing) LYMPHOCYTES # (AUTO) 2025-02-05 09:50 [facility] 2.9 10 3/ul (missing) CARBON DIOXIDE - CO2 2025-02-05 09:50 [facility] 21 mmol/l As of August 2022 testing method has changed, this may include reference ranges. MEAN CORPUSCULAR HEMOGLOBIN 2025-02-05 09:50 [facility] 27.5 pg (missing) POTASSIUM 2025-02-05 09:50 [facility] 3.8 mmol/l As of August 2022 testing method has changed, this may include reference ranges. MEAN CORPUSCULAR HGB CONC 2025-02-05 09:50 [facility] 32.3 g/dl (missing) HCT - HEMATOCRIT 2025-02-05 09:50 [facility] 36.2 % (missing) PLT - PLATELET COUNT 2025-02-05 09:50 [facility] 367 10 3/ul (missing) ALBUMIN 2025-02-05 09:50 [facility] 4.2 g/dl As of August 2022 testing method has changed, this may include reference ranges. RED BLOOD COUNT 2025-02-05 09:50 [facility] 4.26 10 6/ul (missing) LIPASE 2025-02-05 09:50 [facility] 51 u/l As of August 2022 testing method has changed, this may include reference ranges. TOTAL PROTEIN 2025-02-05 09:50 [facility] 6.9 g/dl As of August 2022 testing method has changed, this may include reference ranges. ALKALINE PHOSPHATASE 2025-02-05 09:50 [facility] 68 iu/l As of August 2022 testing method has changed, this may include reference ranges. BUN - BLOOD UREA NITROGEN 2025-02-05 09:50 [facility] 8 mg/dl As of August 2022 testing method has changed, this may include reference ranges. MEAN CORPUSCULAR VOLUME 2025-02-05 09:50 [facility] 85.0 fl (missing) AST ASPARTATE AMINOTRANSFERASE 2025-02-05 09:50 [facility] 9 iu/l As of August 2022 testing method has changed, this may include reference ranges. ALT ALANINE AMINOTRANSFERASE 2025-02-05 09:50 [facility] 9 iu/l As of August 2022 testing method has changed, this may include reference ranges. NEUTROPHILS # (AUTO) 2025-02-05 09:50 [facility] 9.4 10 3/ul (missing) CALCIUM 2025-02-05 09:50 [facility] 9.8 mg/dl As of August 2022 testing method has changed, this may include reference ranges. GLUCOSE 2025-02-05 09:50 [facility] 99 mg/dl As of August 2022 testing method has changed, this may include reference ranges. Result panel 8 GLUCOSE, WHOLE BLOOD 2025-02-05 09:51 [facility] 104 (missing) (missing) Result panel 9 GLUCOSE, WHOLE BLOOD 2025-02-05 11:29 [facility] 80 (missing) (missing) Social History date description facility
[2025-02-07] MEDS ORDERED: CALCIUM CARBONATE CHEW 500 MG TABLET PO PRN (23:22)
--- NOTE | 2025-02-07 23:23 | HISTORY & PHYSICAL EXAMINATION ---
History of Present Illness History of Present Illness HPI Comment/Other: Patient is a 29-year-old 26 weeks 3 days gestation who presents with vaginal bleeding noticed during intercourse with her partner and today staff noticed the blood. Had about a quarter sized clot that she noticed. No significant abdominal pain. Had a small cramp in her lower belly earlier, but no persistent pain. Has not required use of a pad. No itching or burning. No change in discharge or odor. Has not happened before. She has good movement. No contractions. No dysuria or increased frequency. Meds/Allgy Home Medications Ambulatory Orders Medication Instructions Recorded Confirmed aspirin 81 mg chewable tablet 81 mg PO QDAY #90 tabs 0 09/16/24 02/05/25 valacyclovir 500 mg tablet 500 mg PO BID #60 tabs 06/0702/05/25 vits no.126-ferrous fum 1 tab PO DAILY 02/05/25 28 mg iron-folic acid 800 mcg tablet (Classic ) blood sugar diagnostic (Blood #120 ea 10/31/24 5 Glucose Test strips) blood-glucose meter (Blood Glucose #1 ea 10/31/2401/14 Monitoring kit) blood-glucose sensor (Dexcom G7 #1 ea 10/31/24 5 Sensor device) lancets 33 gauge #120 ea 10/31/24 02/05/25 ascorbate calcium (vitamin C) 1 tab PO DAILY 01/01/25 02/05/25 cholecalciferol (vitamin D3) 1 tab PO DAILY 01/01/25 1 04/08/24 insulin glargine 20 unit subcut DAILY PM 01/1302/05/25 labetalol 100 mg tablet 100 mg PO BID #60 tabs 01/3002/05/25 metformin 1,000 mg tablet 1,000 mg PO BID #60 tabs 02/05/25 ferrous sulfate 325 mg (65 mg 325 mg PO DAILY 02/05/25 02/05/25 iron) tablet (Feosol) insulin aspart U-100 100 unit/mL 2 unit subcut BID 02/05/25 (3 mL) subcutaneous pen insulin glargine 100 unit/mL (3 20 unit subcut QPM 02/05/25 mL) subcutaneous pen (Lantus Solostar U-100 Insulin) ondansetron 4 mg disintegrating 4 mg PO TID PRN nausea and 02/05/25 tablet vomiting #10 tabs vitamin B complex (Vitamins B 1 tab PO DAILY 02/05/25 02/05/25 Complex tablet) Allergies Allergies Allergy/AdvReac Type Severity Reaction Status Date / Time nifedipine AdvReac Intermediate Rash, Verified 02/05/25 09:07 FLUSHING, RASH PFSH Active Problems All Active Problems (Updated 02/07/25 @ 23:37 by Tao Cui MD) 36 weeks gestation of (Acute) Antepartum hemorrhage (Acute) Hypoglycemic episode in patient with diabetes mellitus (Acute) (Acute) Nausea and vomiting (Acute) Chronic hypertension affecting (Acute) Near syncope (Acute) Supervision of high risk in second trimester (Acute) Leukocytosis (Acute) 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, antepartum (Acute) Positive home test (Acute) LINDSAY (generalized anxiety disorder) (Acute) Encounter for vitamin deficiency screening (Acute) Sleep apnea-like behavior (Acute) Hypertension, essential, benign (Acute) ADHD (attention deficit hyperactivity disorder) (Acute) Diabetes mellitus, type II (Acute) (Acute) BMI 37.0-37.9, adult (Acute) Medical History Medical History (Updated 02/07/25 @ 23:37 by Tao Cui MD) Early stage of Supervision of high risk in first trimester Medication management Encounter for long-term current use of medication Hyperglycemia due to diabetes mellitus Tiredness Anxiety PCOS (polycystic ovarian syndrome) Panic attack Depression with anxiety Dysmenorrhea Vaginal bleeding, abnormal Pelvic pain in female Knee pain, left Patellofemoral syndrome, left Elevated blood pressure reading without diagnosis of hypertension Dizziness Conjunctivitis Menorrhagia Mixed headache Borderline diabetes mellitus Screening for malignant neoplasm of cervix Recurrent oral herpes simplex infection HTN (hypertension) Nausea Headache Viral upper respiratory infection Appendicitis Abnormal menses Laceration of right hand Surgical History Surgical History S/P appendectomy 2022 Family History Family History Mother High blood pressure Alcoholism Depressed Aunt Breast cancer Social History Social History (Updated 02/05/25 @ 09:26 by Flora Gannon RN) Smoking Status: Former smoker If you are a former smoker, when did you quit? (Date/Year): 2020 Number of Years Smoked: 4 Second hand tobacco smoke exposure: No Do you dip or chew tobacco?: No Do you vape?: No Living arrangement: At home Marital Status: Living Condition: With spouse/s.o. 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 [place]: Quiescent Constitutional normal general appearance, no apparent distress and alert HENMT normocephalic and head/scalp atraumatic Eyes PERRL and EOMs intact bilaterally Respiratory normal respiratory effort and no use of accessory muscles Gastrointestinal abdomen normal to inspection, abdomen soft to palpation and nontender to palpation Genitourinary Anterior placenta far from cervix. No obvious placental bleeding Extremities normal to inspection and full ROM Neurology ground school instructor II-XII intact Psychiatry mental status grossly normal Informed consent for pelvic exam obtained. Bpo Specialist present for exam. Vulva Vulva Exam: normal appearance and normal hair distribution Small amount of blood on perineum. Urethra Urethra: normal and non-tender Bladder Bladder Exam: normal and non-tender Vagina Vaginal Exam: rugated and physiologic discharge small amount of vaginal blood and small clot. Cervix Cervix: No motion tenderness Small about a bleeding coming from cervix, unable to see exact location, but seems like it is coming from just inside the posterior border of the internal os. After removal of clots, a small trickle of blood was noted, but only enough to fill a large cup tip applicator while holding pressure for several minutes. One small clot and less than 5ml blood present and during entire exam. Uterus Uterus: non-tender Conclusion/Plan Problem List (1) Antepartum hemorrhage: Plan: -Will keep overnight for observation for second trimester bleeding. Plan for ultrasound the morning when available. Nothing seen on bedside ultrasound today. Likely seems like a small cervical laceration from trauma during intercourse. -GC/CT pending. No signs of discharge or infection. -Discussed transfer for antepartum hemorrhage given her early gestational age, but at this level bleeding, believe we will stop on its own and is likely cervical and not placental in origin, especially given she has no previa, no abdominal pain, good movement. Plan to use a pad to assess bleeding overnight. I believe this is likely situational and will resolve before morning, but want to keep her for observation to ensure bleeding does not increa se and maintain good wellbeing. -Unlikely to be problematic, but will keep on clear liquids overnight. Type and screen in case of emergency. -Blood type A positive, no need for rhogam. (2) 36 weeks gestation of : Plan: -Grossly normal bedside ultrasound. No large bleeding seen on doppler. Good movement, anterior placenta far from cervix. -Intermittent monitoring. Will check every 2 hours or if she notices a change in movement or increase in bleeding. (3) Chronic hypertension affecting : Plan: Had labs 2 days ago which were reassuring. No significant change in blood pressure, has appointment on Monday, and will consider labetalol if still elevated. Already seeing M.
[2025-02-07] MEDS ORDERED: SODIUM CHLORIDE FLUSH 0.9% 10 ML SYRINGE IVP SCH (23:45)
[2025-02-08 00:15] LABS: HCT - HEMATOCRIT 33.6 % (37.0-47.0); HGB - HEMOGLOBIN 11.1 g/dL (12.0-16.0); MEAN PLATELET VOLUME 10.7 fL (7.9-10.8); NRBC ABSOLUTE COUNT (AUTO) 0.00 x10^3/uL; NUCLEATED RED BLOOD CELLS AUTO 0.0 /100WBC; PLT - PLATELET COUNT 337 10^3/uL (130-450); RED CELL DISTRIBUTION WIDTH 13.6 % (12.0-15.0)
[2025-02-08] MEDS ORDERED: ACETAMINOPHEN 500 MG TABLET PO ONE (01:00)
[2025-02-08 02:59] LABS: CHLAMYDIA TRACHOMATIS DNA NEGATIVE (NEGATIVE); NEISSERIA GONORRHOEAE DNA NEGATIVE (NEGATIVE); TRICHOMONAS VAGINALIS DNA NEGATIVE (NEGATIVE)
[2025-02-08 08:43] VITALS: BP 128/89; TEMP 98.6; O2SAT 99
--- NOTE | 2025-02-08 08:52 | PROVIDER PROGRESS NOTE ---
Subjective Subjective Subjective: Patient has done well overnight. A tiny bit of spotting when wiping, but no bleeding in the pad. Good movement. No contractions or cramping. No abdominal pain. No placental bleed. Objective Constitutional: alert, no acute distress, well hydrated, well developed, well nourished, appropriate dress. Respiratory: no respiratory distress. Abdomen: Gravid, nondistended, nontender, no guarding. Psych: affect and mood appropriate, normal interaction, good eye contact. : No bleeding FHT: Appropriate for gestational age [place]: Quiescent Current Medications Current Medications Current Medications: Current Medications Generic Name Dose Route Start Last Admin Trade Name Freq PRN Reason Stop Dose Admin Calcium Carbonate/Glycine 1,000 mg 02/07/25 23:22 Calcium Carbonate Chew 500 Mg Tablet PO Q6HR PRN Heartburn Sodium Chloride 10 ml 02/07/25 23:45 Sodium Chloride Flush 0.9% 10 Ml Syringe IVP Q8H WOLF Objective Vital Signs/Intake & Output Vital Signs: Vital Signs x48h Temp Pulse Resp BP Pulse Ox 02/08/25 08:00 37.0 C 77 17 128/89 99 02/08/25 04:29 36.6 C 72 16 123/82 98 Intake & Output: Intake & Output 02/05/25 02/06/25 02/07/25 02/08/25 23:59 23:59 23:59 23:59 Intake Total 400 / 400 Balance 400 / 400 Lab Results 02/08/25 00:00 Other Labs: Lab Results x24hrs 02/08/25 02/07/25 Range/Units 00:00 23:05 WBC 12.4 H (4.8-10.8) x10^3/uL RBC 3.99 L (4.20-5.40) 10^6/uL Hgb 11.1 L (12.0-16.0) g/dL Hct 33.6 L (37.0-47.0) % MCV 84.2 (81.0-99.0) fL MCH 27.8 (27.0-31.0) pg MCHC 33.0 (32.0-36.0) g/dL RDW 13.6 (12.0-15.0) % Plt Count 337 (130-450) 10^3/uL MPV 10.7 (7.9-10.8) fL Neut # (Auto) 7.2 H (1.5-6.6) 10^3/uL Lymph # (Auto) 4.3 H (1.5-3.5) 10^3/uL [place] # (Auto) 0.6 (0.0-1.0) 10^3/uL Eos # (Auto) 0.2 (0.0-0.7) 10^3/uL Baso # (Auto) 0.0 (0.0-0.1) 10^3/uL Absolute Nucleated RBC 0.00 x10^3/uL Nucleated RBC % 0.0 /100WBC Chlam trachomat DNA PCR NEGATIVE (NEGATIVE) N.gonorrhoeae DNA (PCR) NEGATIVE (NEGATIVE) T. vaginalis (PCR) NEGATIVE (NEGATIVE) Blood Type A POSITIVE Antibody Screen NEGATIVE Assessment/Plan Problem List (1) Antepartum hemorrhage: Impression: Bleeding subsided. Likely cervical trauma. Discharged with bleeding precautions. Pelvic rest for 1 week. Should let us know if bleeding increases. No placental problems seen on ultrasound and good status. (2) 36 weeks gestation of : Impression: Routine care (3) Chronic hypertension affecting : Impression: Follow-up in clinic for medication management, although blood pressure normal this morning although borderline.
--- NOTE | 2025-02-08 08:57 | Ultrasound Report ---
PROCEDURE: US OB Limited INDICATIONS: Uterine bleeding OUTSIDE/PRIOR DATING DATA: Working ROGELIO: 05/13/2025 TECHNIQUE: Real-time scanning was performed of the fetus, with image documentation and biometric measurements. Endovaginal scanning: Not performed. COMPARISON: OB ultrasound 12/31/2024 FINDINGS: General: A single living intrauterine gestation is present. Presentation: Variable/vertex Placenta: Placental position is anterior, without previa. Amniotic fluid index: 16.6 cm, within normal limits for gestational age. heart rate: 140 beats per minute. Maternal cervical canal: 4.5 cm long; normal length is 2.5 cm or more. biometrics: Biparietal diameter: 4.61 cm, corresponding to 20 weeks, 0 days Head circumference: 18.35 cm corresponding to 20 weeks, 5 days Abdominal circumference: 15.44 cm corresponding to 20 weeks, 4 days Femur length: 33.6 cm corresponding to 20 weeks, 4 days Estimated gestational age from initial scan: 21 weeks, 0-day Composite gestational age from present scan: 20 weeks, 2 days Estimated weight and percentile: 362.7 g, 23.7 percentile Measurement variability in biometric dating: +/- 10 days from 12-20 weeks gestation, +/- 2 weeks from 20-30 weeks gestation, +/- 3 weeks at 30 weeks gestation or more. Limit evaluation of anatomy demonstrates no gross abnormalities. Other: Not applicable. IMPRESSION: Single intrauterine gestation in variable/vertex presentation with estimated gestational age of 20 weeks, 2 days based on biometry which is concordant with clinical dating. Estimated weight in 23.7 percentile. Normal appearance of the placenta. Normal RAD. Agree with preliminary findings given to the ordering provider by the director of food and nutrition services following completion of the study. Reviewed by: Carly Baker MD, PhD on 02/08/2025 8:54 AM PST Approved by: Carly Baker MD, PhD on 02/08/2025 8:54 AM PST Station ID: [id number]
--- NOTE | 2025-02-08 08:58 | Ultrasound Report ---
PROCEDURE: US OB Limited INDICATIONS: Uterine bleeding OUTSIDE/PRIOR DATING DATA: Working ROGELIO: 05/13/2025 TECHNIQUE: Real-time scanning was performed of the fetus, with image documentation and biometric measurements. Endovaginal scanning: Not performed. COMPARISON: OB ultrasound 12/31/2024 FINDINGS: General: A single living intrauterine gestation is present. Presentation: Variable/vertex Placenta: Placental position is anterior, without previa. Amniotic fluid index: 16.6 cm, within normal limits for gestational age. heart rate: 140 beats per minute. Maternal cervical canal: 4.5 cm long; normal length is 2.5 cm or more. biometrics: Biparietal diameter: 4.61 cm, corresponding to 20 weeks, 0 days Head circumference: 18.35 cm corresponding to 20 weeks, 5 days Abdominal circumference: 15.44 cm corresponding to 20 weeks, 4 days Femur length: 33.6 cm corresponding to 20 weeks, 4 days Estimated gestational age from initial scan: 21 weeks, 0-day Composite gestational age from present scan: 20 weeks, 2 days Estimated weight and percentile: 362.7 g, 23.7 percentile Measurement variability in biometric dating: +/- 10 days from 12-20 weeks gestation, +/- 2 weeks from 20-30 weeks gestation, +/- 3 weeks at 30 weeks gestation or more. Limit evaluation of anatomy demonstrates no gross abnormalities. Other: Not applicable. IMPRESSION: Single intrauterine gestation in variable/vertex presentation with estimated gestational age of 20 weeks, 2 days based on biometry which is concordant with clinical dating. Estimated weight in 23.7 percentile. Normal appearance of the placenta. Normal RAD. Agree with preliminary findings given to the ordering provider by the continuous mining machine lode miner following completion of the study. Reviewed by: Carly Baker MD, PhD on 02/08/2025 8:55 AM PST Approved by: Carly Baker MD, PhD on 02/08/2025 8:55 AM PST Station ID: [id number]
== END 2025-02-08 09:12 | disposition home or self-care (01) ==
LOC: FBP 22:13 → INTOOBSV 22:13 → FBP 23:49 → UNDODISOB 02-08 09:12
PROVIDERS: ADMIT Obstetrics & Gynecology; ATTEND Obstetrics & Gynecology
DX: Z3A.26 26 weeks gestation of pregnancy; O46.92 Antepartum hemorrhage, unspecified, second trimester; O10.912 Unspecified pre-existing hypertension complicating pregnancy, second trimester; Z87.891 Personal history of nicotine dependence